=== PATIENT | male | born 1930 | race Caucasian/White ===

== ENCOUNTER 2016-07-15 10:47 | Emergency (ER) | payer BC ==
[~2016-07-15] VITALS: Ht 185.4 cm; Wt 98.0 kg
[~2016-07-15 10:47] MED LIST: AGG PO; CARB25TA12 PO; CHOL100010 PO; DORZ1SOL OPB; DOXA4TAB2 PO; MULT-506 PO; SIMV20TA2 PO
[2016-07-15 10:56] VITALS: TEMP 36.5; Ht 185.4 cm; Wt 98.0 kg
[2016-07-15 11:12] VITALS: O2SAT 98
[2016-07-15] MEDS ORDERED: DORZ2SOL17 OPB (11:26)
[2016-07-15] MEDS ORDERED: CHOL1000 PO (11:26)
[2016-07-15] MEDS ORDERED: AGG PO (11:26)
--- NOTE | 2016-07-15 12:15 | EMERGENCY ROOM VISIT NOTE ---
History Report prepared by Carinibe: Gilda Cárdenas Under the Supervision of: Dr. Dimitry Whitley M.D. First contact with patient: 11:58 Chief Complaint: SYNCOPE (NEAR SYNCOPE) Stated Complaint: SYNCOPE Nursing Triage Summary: PT was standing in yazidi,became light headed, and pale. PT laid down, did not ever pass out. PT upon arrival denies pain, denies CP, denies any SOB. PT AAO X 3, no dizziness. PT HX of bypass, has pacemaker. paced rhythm on monitor. VSS. History of Present Illness The patient is a 86 year old male who presents to the Emergency Room with complaints of an episode of near syncope that occurred this morning. He is accompanied by his and was brought to the ED via EMS. His reports he almost passed out in Jainism this morning. The patient states he was standing when he became dizzy and diaphoretic. He was able to lay down and wait for EMS to arrive. His denies any possible seizure activity but reports the patient looked "white as a sheet". The patient denies any chest pain or shortness of breath but admits to some increased low back pain over the past few weeks. He did eat a breakfast of toast this morning and reports he has experienced syncopal episodes in the past when he has not eaten. He has a history of cardiac bypass surgery and has a pacemaker. The patient denies any abdominal pain. His notes he takes daily generic Aggrenox and reports the patient had an ultrasound at Dr. Panda's office this past , 3 days ago. Source of History: patient, spouse/significant other () Onset: Earlier this morning Position: other (global) Timing: resolved Associated Symptoms: + back pain, No SOB, No abdominal pain, No chest pain Review of Systems All systems have been listed, reviewed, and are negative other than those previously mentioned. Please see Additional Medical History Sheet. Past Medical & Surgical Medical Problems: (1) Cardiac Dysrhythmias Nec (2) Cardiomegaly (3) Chr Ischemic Hrt Dis Nos (4) Chronic Kidney Disease, Unspecified (5) Hypertension Nos (6) Irritable Bowel Syndrome (7) Osteoarthros Nos-Unspec (8) Pacemaker (9) Syncope Family History Cancer FH: heart disease Social History Smoking Status: Former Smoker Drug Use: none Marital Status: Housing Status: lives with family Occupation Status: retired Current/Historical Medications Scheduled Carbidopa/Levodopa (Sinemet 25MG/100MG), 1 TAB PO TID Cholecalciferol (Vitamin D3), 1 TAB PO DAILY Dipyridamole/Aspirin (Aggrenox 25-200 mg), 1 CAP PO BID Dorzolamide Hcl (Trusopt Oph), 1 DROPS OP BID Doxazosin Mesylate (Cardura), 4 MG PO HS Multivitamin (Multivitamin), 1 TAB PO QAM Simvastatin (Zocor), 20 MG PO HS Allergies Coded Allergies: No Known Drug Allergy (Verified Allergy, Unknown, ., 05/04/15) High Fructose Clearwater Syrup (Verified Adverse Reaction, Intermediate, diarrhea, 03/31/16) Eggs or Egg-derived Products (Verified Adverse Reaction, Unknown, diarrhea , 03/31/16) Physical Exam Vital Signs Date Time Temp Pulse Resp B/P Pulse Ox O2 Delivery O2 Flow Rate FiO2 07/15/16 15:40 81 20 152/89 97 07/15/16 14:24 63 144/82 87 127/81 78 147/86 07/15/16 13:38 64 07/15/16 12:37 60 18 158/96 98 Room Air 07/15/16 11:12 98 Room Air 07/15/16 11:06 61 07/15/16 10:56 36.5 61 18 139/86 98 Room Air Physical Exam GENERAL: Patient awake, alert, oriented x 3. Patient follows commands. Patient does not appear toxic. Patient is adequately hydrated and well- nourished. SKIN: No erythema, pallor, cyanosis or rash HEENT: Normal head, pupils equal, reactive to light and accommodation. Increased cerumen bilaterally. Oral cavity and posterior pharynx appear normal. Neck: Without adenopathy, no neck vein distention. LUNGS: Clear to auscultation. No wheezes, no rales, no rhonchi. HEART: Irregularly irregular rhythm. No murmurs. No gallops. No rubs CHEST: Pacemaker in left upper chest. Midline sternotomy scar, well healed. ABDOMEN: Oblique RUQ scar. No masses, no rebound, no hepatomegaly or splenomegaly. EXTREMITIES: No signs of trauma. No pedal or pretibial edema. No calf or thigh tenderness. NEUROLOGIC: Cranial nerves II-XII within normal limits. No gross motor sensory function deficits. Medical Decision & Procedures ER Provider Diagnostic Interpretation: This X-Ray was reviewed and interpreted by myself and the radiologist. CHEST 2 VIEWS ROUTINE IMPRESSION: No acute cardiopulmonary findings. No change in appearance of the chest. Electronically signed by: Lupillo Hawley M.D. 07/15/2016 12:30 PM Laboratory Results 07/15/16 12:35 Red Blood Count 4.44, Mean Corpuscular Volume 95.0, Mean Corpuscular Hemoglobin 33.3, Mean Corpuscular Hemoglobin Concent 35.1, Mean Platelet Volume 9.4, Neutrophils (%) (Auto) 70.9, Lymphocytes (%) (Auto) 17.5, Monocytes (%) (Auto) 9.0, Eosinophils (%) (Auto) 2.2, Basophils (%) (Auto) 0.3, Neutrophils # (Auto) 4.90, Lymphocytes # (Auto) 1.21, Monocytes # (Auto) 0.62, Eosinophils # (Auto) 0.15, Basophils # (Auto) 0.02 07/15/16 12:35 Test 07/15/16 10:45 07/15/16 12:35 Prothrombin Time 10.9 SECONDS (9.0-12.0) Prothromb Time International Ratio 1.0 (0.9-1.1) White Blood Count 6.91 K/uL (4.8-10.8) Red Blood Count 4.44 M/uL (4.7-6.1) Hemoglobin 14.8 g/dL (14.0-18.0) Hematocrit 42.2 % (42-52) Mean Corpuscular Volume 95.0 fL (80-100) Mean Corpuscular Hemoglobin 33.3 pg (25-34) Mean Corpuscular Hemoglobin Concent 35.1 g/dl (32-36) Platelet Count 200 K/uL (130-400) Mean Platelet Volume 9.4 fL (7.4-10.4) Neutrophils (%) (Auto) 70.9 % Lymphocytes (%) (Auto) 17.5 % Monocytes (%) (Auto) 9.0 % Eosinophils (%) (Auto) 2.2 % Basophils (%) (Auto) 0.3 % Neutrophils # (Auto) 4.90 K/uL (1.4-6.5) Lymphocytes # (Auto) 1.21 K/uL (1.2-3.4) Monocytes # (Auto) 0.62 K/uL (0.11-0.59) Eosinophils # (Auto) 0.15 K/uL (0-0.5) Basophils # (Auto) 0.02 K/uL (0-0.2) RDW Standard Deviation 45.6 fL (36.4-46.3) RDW Coefficient of Variation 13.1 % (11.5-14.5) Immature Granulocyte % (Auto) 0.1 % Immature Granulocyte # (Auto) 0.01 K/uL (0.00-0.02) Urine Color YELLOW Urine Appearance CLEAR (CLEAR) Urine pH 7.5 (4.5-7.5) Urine Specific [place] 1.015 (1.000-1.030) Urine Protein NEG (NEG) Urine Glucose (UA) NEG (NEG) Urine Ketones NEG (NEG) Urine Occult Blood NEG (NEG) Urine Nitrite NEG (NEG) Urine Bilirubin NEG (NEG) Urine Urobilinogen NEG (NEG) Urine Leukocyte Esterase NEG (NEG) Anion Gap 8.0 mmol/L (3-11) Est Creatinine Clear Calc Drug Dose 46.7 ml/min Estimated GFR () 52.4 Estimated GFR (Non- 45.2 BUN/Creatinine Ratio 15.6 (10-20) Calcium Level 9.3 mg/dl (8.5-10.1) Total Bilirubin 0.7 mg/dl (0.2-1) Aspartate Amino Transf (AST/SGOT) 15 U/L (15-37) Alanine Aminotransferase (ALT/SGPT) 9 U/L (12-78) Alkaline Phosphatase 55 U/L (45-117) Troponin I < 0.015 ng/ml (0-0.045) Total Protein 7.7 gm/dl (6.4-8.2) Albumin 4.0 gm/dl (3.4-5.0) Globulin 3.7 gm/dl (2.5-4.0) Albumin/Globulin Ratio 1.1 (0.9-2) Laboratory results as stated above per my review. ECG Indication: syncope (near syncope) Rate (beats per minute): 64 Rhythm: other (AV dual paced rhythm) Findings: no acute ischemic change, no ectopy ED Course 1200: Past medical records reviewed. The patient was evaluated in room A3. A complete history and physical examination was performed. 1450: I reevaluated the patient. He is feeling well and his ambulation trial with nursing was successful. 1511: I discussed the patients case with Dr. Panda, [facility]. I will look up the patients recent Ultrasound at his office. Medical Decision The differential diagnoses considered include: TIA/CVA, vasovagal syncope, AAA, dissection/rupture, metabolic disorder and anemia. The patient is here after near syncopal episode in yazidi today. The patient was standing when this happened. He did not have complete loss of consciousness. He did not hit his head or other body parts. The patient now feels fine. The patient did have an ultrasound done within the past 2 weeks regarding his aortic aneurysm. Multiple labs, EKG and imaging were performed today. Please see above. The patient had orthostatics performed here which were felt to be within normal range. He had an ambulatory trial where he performed well. After some searching I was able to find patient's ultrasound results from . The study does not reveal any significant change. I do not believe the patient's lower back pain or near syncope today are related to his aortic aneurysm. I believe the patient is safe to return home. [place] Drug Monitoring Program Search Results: no issues identified Consults Time Called: 1509 Consulting Physician: Dr. Panda, [facility] Returned Call: 1511 I discussed the patients case with Dr. Panda, [facility]. I will look up the patients recent Ultrasound at his office. Impression Primary Impression: Near syncope Scribe Attestation The scribe's documentation has been prepared under my direction and personally reviewed by me in its entirety. I confirm that the note above accurately reflects all work, treatment, procedures, and medical decision making performed by me. Departure Information Dispostion Home / Self-Care Referrals Dionisio Horvath M.D. (PCP) Patient Instructions My [facility] Additional Instructions Continue all of your current medications. REST Follow-up the family physician within the next 7 days.
[2016-07-15 12:31] LABS: PROTHROMBIN TIME (PATIENT) 10.9 SECONDS (9.0-12.0)
--- NOTE | 2016-07-15 12:31 | DIAGNOSTIC IMAGING REPORT ---
CHEST 2 VIEWS ROUTINE CLINICAL HISTORY: Near syncope. COMPARISON STUDY: Chest radiograph March 31, 2016. FINDINGS: There is a dual lead left subclavian pacemaker, median sternotomy wires and clips from bypass grafting. Cardiomediastinal silhouette is stable. A hiatal hernia is again noted. There is no evidence of pulmonary edema. There is no consolidation to suggest pneumonia. Minimal left basilar opacity suggests atelectasis. IMPRESSION: No acute cardiopulmonary findings. No change in appearance of the chest. Electronically signed by: Lupillo Hawley M.D. 07/15/2016 12:30 PM Dictated Date/Time: 07/15/2016 12:29 PM
[2016-07-15 12:50] LABS: BASO % 0.3 %; BASO ABS # 0.02 K/uL (0-0.2); COMPLETE YES; EOS % 2.2 %; HEMATOCRIT 42.2 % (42-52); IG% 0.1 %; LYMPH % 17.5 %; LYMPH ABS # 1.21 K/uL (1.2-3.4); MANUAL MICROSCOPIC REQUIRED? NO; MEAN CORPUSCULAR HEMOGLOBIN 33.3 pg (25-34); MEAN CORPUSCULAR HGB CONC 35.1 g/dl (32-36); MEAN PLATELET VOLUME 9.4 fL (7.4-10.4); NEUT % 70.9 %; PLATELET COUNT 200 K/uL (130-400); RED BLOOD COUNT 4.44 M/uL (4.7-6.1); URINE APPEARANCE CLEAR (CLEAR); URINE BILIRUBIN NEG (NEG); URINE COLOR YELLOW; URINE NITRITE NEG (NEG); URINE PH 7.5 (4.5-7.5); URINE SPECIFIC GRAVITY 1.015 (1.000-1.030); UROBILINOGEN NEG (NEG); WHITE BLOOD COUNT 6.91 K/uL (4.8-10.8)
[2016-07-15 12:54] LABS: REVIEW REQ? NO
[2016-07-15 12:55] LABS: SULFASALICYLIC ACID NEG (NEG); ZZUR CULT IF INDIC CLEAN CATCH NO
[2016-07-15 13:08] LABS: ALT/SGPT 9 U/L (12-78); AST/SGOT 15 U/L (15-37); BLOOD UREA NITROGEN 22 mg/dl (7-18); BUN/CREATININE RATIO 15.6 (10-20); CALCIUM 9.3 mg/dl (8.5-10.1); CARBON DIOXIDE 29 mmol/L (21-32); CHLORIDE 106 mmol/L (98-107); GLUCOSE 93 mg/dl (70-99); POTASSIUM 4.4 mmol/L (3.5-5.1); SODIUM 143 mmol/L (136-145)
[2016-07-15 13:13] LABS: ALB/GLOB RATIO 1.1 (0.9-2); ALKALINE PHOSPHATASE 55 U/L (45-117)
[2016-07-15 15:40] VITALS: BP 152/89; PULSE 81; O2SAT 97
== END 2016-07-15 15:41 | disposition home or self-care (01) ==
LOC: EDBD 10:47 → C.EDA 10:48
DX: R55 Syncope and collapse (principal); I71.9 Aortic aneurysm of unspecified site, without rupture; I25.9 Chronic ischemic heart disease, unspecified; I51.7 Cardiomegaly; N18.9 Chronic kidney disease, unspecified; I12.9 Hypertensive chronic kidney disease with stage 1 through stage 4 chronic kidney disease, or unspecified chronic kidney disease; K58.9 Irritable bowel syndrome, unspecified; M19.90 Unspecified osteoarthritis, unspecified site; Z95.0 Presence of cardiac pacemaker; Z82.49 Family history of ischemic heart disease and other diseases of the circulatory system; Z87.891 Personal history of nicotine dependence; Z79.82 Long term (current) use of aspirin; Z79.899 Other long term (current) drug therapy

== ENCOUNTER → 2016-10-01 | Outpatient (CLI) | payer BC ==
[~2016-10-01] MED LIST changes: +CHOL1000 PO; -DORZ1SOL OPB; +DORZ2SOL17 OPB; +PRED20TA PO
[2016-10-01 13:37] LABS: BASO % 0.6 %; BASO ABS # 0.03 K/uL (0-0.2); COMPLETE YES; EOS % 6.1 %; HEMATOCRIT 40.5 % (42-52); IG% 0.4 %; LYMPH ABS # 1.72 K/uL (1.2-3.4); MEAN CELL VOLUME 98.3 fL (80-100); MEAN CORPUSCULAR HEMOGLOBIN 32.5 pg (25-34); MEAN CORPUSCULAR HGB CONC 33.1 g/dl (32-36); MEAN PLATELET VOLUME 9.6 fL (7.4-10.4); MONO % 13.6 %; NEUT % 47.3 %; PLATELET COUNT 203 K/uL (130-400); RED BLOOD COUNT 4.12 M/uL (4.7-6.1); WHITE BLOOD COUNT 5.38 K/uL (4.8-10.8)
[2016-10-01 13:44] LABS: URINE APPEARANCE CLEAR (CLEAR); URINE BILIRUBIN NEG (NEG); URINE COLOR DK YELLOW; URINE EPITHELIAL CELL AUTO 0-5 /lpf (0-5); URINE NITRITE NEG (NEG); URINE PH 5.5 (4.5-7.5); URINE SPECIFIC GRAVITY 1.017 (1.000-1.030); UROBILINOGEN NEG (NEG); ZZUR CULT IF INDIC CLEAN CATCH NO
[2016-10-01 13:45] LABS: ESTIMATED AVERAGE GLUCOSE 131 mg/dl; HA1C FLAG Normal (Normal)
[2016-10-01 13:51] LABS: MANUAL MICROSCOPIC REQUIRED? NO; REVIEW REQ? NO
[2016-10-01 13:57] LABS: BLOOD UREA NITROGEN 22 mg/dl (7-18); BUN/CREATININE RATIO 15.6 (10-20); CARBON DIOXIDE 29 mmol/L (21-32); CHLORIDE 107 mmol/L (98-107); GLUCOSE 92 mg/dl (70-99); POTASSIUM 4.4 mmol/L (3.5-5.1); SODIUM 142 mmol/L (136-145)
[2016-10-01 14:01] LABS: CALCIUM 9.5 mg/dl (8.5-10.1)
--- NOTE | 2016-10-08 13:56 | CODING QUERY MEDICAL NECESSITY ---
CQSUPPORTING DIAGNOSIS NEEDED A supporting diagnosis is required for the test/procedure performed on this patient in order for us to be reimbursed by the patient's insurance. Please provide a supporting diagnosis for the following test/procedure listed below next to the test name along with your signature. *If there is no additional diagnosis for this patient that would support the following test/procedure please document that below next to the test/procedure. Test(s)/Procedure(s) that require a supporting diagnosis: DOS 10/01/16 VITAMIN B12 VITAMIN D TESTS Provider Signature: Date: Thank you France Chauhan Health Information Management Once completed, please kindly fax back to [phone] For questions please call [phone]
== END | disposition home or self-care (01) ==
LOC: C.LABBC 11:40
PROVIDERS: ATTEND Internal Medicine Geriatric Medicine
DX: R39.15 Urgency of urination (principal); N18.9 Chronic kidney disease, unspecified; I25.10 Atherosclerotic heart disease of native coronary artery without angina pectoris; E11.9 Type 2 diabetes mellitus without complications; D64.9 Anemia, unspecified; E55.9 Vitamin D deficiency, unspecified

== ENCOUNTER 2016-12-02 11:18 | Emergency (ER) | payer BC ==
[~2016-12-02] VITALS: Ht 186.7 cm; Wt 92.0 kg
[~2016-12-02 11:18] MED LIST changes: -CHOL100010 PO; -PRED20TA PO
[2016-12-02 11:23] VITALS: Ht 186.7 cm; Wt 92.0 kg
[2016-12-02 12:01] LABS: BASO % 0.4 %; BASO ABS # 0.02 K/uL (0-0.2); COMPLETE YES; EOS % 3.7 %; HEMATOCRIT 39.9 % (42-52); IG% 0.2 %; LYMPH % 20.9 %; LYMPH ABS # 1.07 K/uL (1.2-3.4); MEAN CELL VOLUME 95.9 fL (80-100); MEAN CORPUSCULAR HEMOGLOBIN 31.3 pg (25-34); MEAN CORPUSCULAR HGB CONC 32.6 g/dl (32-36); MEAN PLATELET VOLUME 9.1 fL (7.4-10.4); MONO % 12.3 %; NEUT % 62.5 %; PLATELET COUNT 197 K/uL (130-400); RED BLOOD COUNT 4.16 M/uL (4.7-6.1); WHITE BLOOD COUNT 5.13 K/uL (4.8-10.8)
--- NOTE | 2016-12-02 12:12 | DIAGNOSTIC IMAGING REPORT ---
SINGLE VIEW CHEST CLINICAL HISTORY: Syncope. FINDINGS: 2 AP, portable, upright chest radiographs are compared to study dated 07/15/2016 and correlated with chest CT dated 09/14/2008. The examination is degraded by portable technique and patient rotation. A 2-lead cardiac pacemaker is unchanged in position and partially obscures the left upper chest. The patient is status post midline sternotomy. The heart is enlarged and there is atherosclerotic calcification of the thoracic aorta. The pulmonary vasculature is noncongested. Apical scarring is observed. Emphysema and chronic interstitial thickening are similar to previous. No airspace consolidation, large pleural effusion, or pneumothorax is seen. The skeletal structures are osteopenic. The bony thorax is grossly intact. Cholecystectomy clips are seen in the right upper quadrant. IMPRESSION: 1. Cardiomegaly and cardiac pacemaker. There is no radiographic evidence of congestive failure. 2. Emphysematous change. There is no airspace consolidation or pleural effusion. Electronically signed by: John Nichols M.D. 12/02/2016 12:11 PM Dictated Date/Time: 12/02/2016 12:07 PM
[2016-12-02 12:20] LABS: BUN/CREATININE RATIO 14.3 (10-20); CALCIUM 9.4 mg/dl (8.5-10.1); CREATININE 1.5 mg/dl (0.60-1.40); POTASSIUM 4.1 mmol/L (3.5-5.1)
[2016-12-02 12:29] LABS: CKMB/CK RATIO 1.5 (0-3.0); THYROID STIMULATING HORMONE 2.13 uIu/ml (0.300-4.500)
[2016-12-02] MEDS ORDERED: OPTIRAY 320 IV PRN (12:45)
--- NOTE | 2016-12-02 13:01 | DIAGNOSTIC IMAGING REPORT ---
CT SCAN OF THE BRAIN COMBO CLINICAL HISTORY: Syncope. COMPARISON STUDY: CT of the brain dated 04/23/2012. MRI of the brain dated 06/09/2014. TECHNIQUE: Axial CT scan of the brain is performed from the vertex to the skull base before and following the IV administration of 93 cc of Optiray 320. CT DOSE: 1768.17 mGy.cm FINDINGS: Brain parenchyma: There are age-related involutional changes noting moderate confluent subcortical and periventricular microangiopathic change. There is no hemorrhage, mass effect, or evidence of acute territorial ischemia by CT criteria. There is no evidence of enhancing mass lesion on the postcontrast images. 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 Siddiqi-white matter is preserved. No extra-axial fluid collection is seen. Ventricles, sulci, cisterns: Prominent secondary to involutional change. Intracranial vasculature: There is atherosclerotic calcification of the cavernous carotid and vertebral arteries. Calvarium: The skeletal structures are osteopenic. There is no depressed calvarial fracture. Sinuses and mastoids: Trace mucosal thickening is seen in the maxillary antra and the ethmoid sinuses. The remaining paranasal sinuses are clear. There is a trace left mastoid effusion. The right mastoid air cells are well pneumatized. Orbits: The bony orbits are grossly intact. IMPRESSION: Senescent changes as above with no hemorrhage, enhancing mass, or evidence of acute territorial ischemia by CT criteria. Electronically signed by: John Nichols M.D. 12/02/2016 1:00 PM Dictated Date/Time: 12/02/2016 12:55 PM
[2016-12-02 13:34] LABS: URINE APPEARANCE CLEAR (CLEAR); URINE BILIRUBIN NEG (NEG); URINE COLOR YELLOW; URINE EPITHELIAL CELL AUTO 0-5 /lpf (0-5); URINE NITRITE NEG (NEG); URINE PH 7.5 (4.5-7.5); URINE SPECIFIC GRAVITY 1.024 (1.000-1.030); UROBILINOGEN NEG (NEG); ZZUR CULT IF INDIC CLEAN CATCH NO
[2016-12-02 13:35] LABS: MANUAL MICROSCOPIC REQUIRED? NO; REVIEW REQ? NO
--- NOTE | 2016-12-02 15:08 | EMERGENCY ROOM VISIT NOTE ---
History Report prepared by Henrietta: Jose D Morin Under the Supervision of: Dr. Shruti Castaneda D.O. First contact with patient: 11:52 Chief Complaint: SYNCOPE (NEAR SYNCOPE) Stated Complaint: SYNCOPE Nursing Triage Summary: pt arrived als from [facility] reported syncopal event, [facility] was warm and pt was dressed in heavy jacket. this is the second time in two months this has happened pt hx pacer placed two years prior, double bipass in 85 History of Present Illness The patient is a 86 year old male who presents to the Emergency Room by EMS with complaints of a syncopal episode occurring just prior to arrival. He was at [facility] today when he passed out. He notes that he was wearing a heavy jacket , and the [facility] was very warm. The patient had a previous near-syncopal event occur about a month ago which was thought to be related to dehydration. Per , the patient appears to have completely lost consciousness today. She states that the patient was unconscious while sitting for several minutes, but woke up very quickly upon being laid on the ground. The patient recalls feeling "woozy" and sweaty prior to passing out. He does not remember passing out. The patient' s notes that the patient is seen by a neurologist for Parkinsonism. The patient had his medication dosage changed by his neurologist earlier this week. He notes that he felt a little increased stress earlier this week. He denies any diarrhea, abdominal pain, chest pain, SOB, numbness, tingling, nausea, vomiting, visual changes or palpitations. The patient also complains of increased urinary frequency. He has a pacemaker in place which was most recently examined during his previous near-syncopal episode about a month ago. Source of History: patient Onset: Just prior to arrival Quality: other (syncope) Timing: other (episode) Associated Symptoms: + LOC, + urinary symptoms (increased frequency), No chest pain, No SOB, No nausea, No vomiting, No abdominal pain, No diarrhea, No numbness Note: The patient denies any visual changes, tingling, or palpitations. He also complains of feeling "woozy" prior to falling. Review of Systems See HPI for pertinent positives & negatives. A total of 10 systems reviewed and were otherwise negative. Past Medical & Surgical Medical Problems: (1) Cardiac Dysrhythmias Nec (2) Cardiomegaly (3) Chr Ischemic Hrt Dis Nos (4) Chronic Kidney Disease, Unspecified (5) Hypertension Nos (6) Irritable Bowel Syndrome (7) Osteoarthros Nos-Unspec (8) Pacemaker (9) Parkinsonism (10) Syncope Family History Cancer FH: heart disease Social History Smoking Status: Former Smoker Drug Use: none Marital Status: Housing Status: lives with family Occupation Status: retired Current/Historical Medications Scheduled Carbidopa/Levodopa (Sinemet 25MG/100MG), 3 TAB PO TID Cholecalciferol (Vitamin D3), 1 TAB PO DAILY Dipyridamole/Aspirin (Aggrenox 25-200 mg), 1 CAP PO BID Dorzolamide Hcl (Trusopt Oph), 1 DROPS OPB BID Doxazosin Mesylate (Cardura), 2 MG PO HS Multivitamin (Multivitamin), 1 TAB PO QAM Simvastatin (Zocor), 20 MG PO HS Allergies Coded Allergies: No Known Drug Allergy (Verified Allergy, Unknown, ., 05/04/15) High Fructose [place] Syrup (Verified Adverse Reaction, Intermediate, diarrhea, 03/31/16) Eggs or Egg-derived Products (Verified Adverse Reaction, Unknown, diarrhea , 03/31/16) Physical Exam Vital Signs Date Time Temp Pulse Resp B/P (MAP) Pulse Ox O2 Delivery O2 Flow Rate FiO2 12/02/16 15:17 36.5 61 18 146/83 99 12/02/16 14:28 63 16 174/107 98 Room Air 12/02/16 14:19 97 Room Air 12/02/16 13:01 64 16 162/92 96 Room Air 72 151/93 74 156/83 12/02/16 12:04 60 12/02/16 11:23 36.5 70 18 153/85 93 Room Air Physical Exam GENERAL: alert, well appearing, well nourished, no distress, non-toxic EYE EXAM: normal conjunctiva. OROPHARYNX: no exudate, no erythema, lips, buccal mucosa, and tongue normal and mucous membranes are moist NECK: supple, no nuchal rigidity, no adenopathy, non-tender LUNGS: Clear to auscultation. Normal chest wall mechanics HEART: no murmurs, S1 normal and S2 normal CHEST: Well healed sternotomy scar. Pacemaker left anterior superior chest wall. ABDOMEN: abdomen soft, non-tender, normo-active bowel sounds, no masses, no rebound or guarding. BACK: Back is symmetrical on inspection and there is no deformity, no midline tenderness, no CVA tenderness. SKIN: no rashes and no bruising UPPER EXTREMITIES: upper extremities are grossly normal. LOWER EXTREMITIES: No pitting edema. NEURO EXAM: Normal sensorium, cranial nerves II-XII grossly intact, normal speech, no gross weakness of arms, no gross weakness of legs. Medical Decision & Procedures ER Provider Diagnostic Interpretation: Radiology results have been interpreted by the radiologist and reviewed by me. CT SCAN OF THE BRAIN COMBO FINDINGS: Brain parenchyma: There are age-related involutional changes noting moderate confluent subcortical and periventricular microangiopathic change. There is no hemorrhage, mass effect, or evidence of acute territorial ischemia by CT criteria. There is no evidence of enhancing mass lesion on the postcontrast images. 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 Siddiqi-white matter is preserved. No extra-axial fluid collection is seen. Ventricles, sulci, cisterns: Prominent secondary to involutional change. Intracranial vasculature: There is atherosclerotic calcification of the cavernous carotid and vertebral arteries. Calvarium: The skeletal structures are osteopenic. There is no depressed calvarial fracture. Sinuses and mastoids: Trace mucosal thickening is seen in the maxillary antra and the ethmoid sinuses. The remaining paranasal sinuses are clear. There is a trace left mastoid effusion. The right mastoid air cells are well pneumatized. Orbits: The bony orbits are grossly intact. IMPRESSION: Senescent changes as above with no hemorrhage, enhancing mass, or evidence of acute territorial ischemia by CT criteria. Electronically signed by: John Nichols M.D. SINGLE VIEW CHEST FINDINGS: 2 AP, portable, upright chest radiographs are compared to study dated 07/15/2016 and correlated with chest CT dated 09/14/2008. The examination is degraded by portable technique and patient rotation. A 2-lead cardiac pacemaker is unchanged in position and partially obscures the left upper chest. The patient is status post midline sternotomy. The heart is enlarged and there is atherosclerotic calcification of the thoracic aorta. The pulmonary vasculature is noncongested. Apical scarring is observed. Emphysema and chronic interstitial thickening are similar to previous. No airspace consolidation, large pleural effusion, or pneumothorax is seen. The skeletal structures are osteopenic. The bony thorax is grossly intact. Cholecystectomy clips are seen in the right upper quadrant. IMPRESSION: 1. Cardiomegaly and cardiac pacemaker. There is no radiographic evidence of congestive failure. 2. Emphysematous change. There is no airspace consolidation or pleural effusion. Electronically signed by: John Nichols M.D. Laboratory Results 12/02/16 11:40 Red Blood Count 4.16, Mean Corpuscular Volume 95.9, Mean Corpuscular Hemoglobin 31.3, Mean Corpuscular Hemoglobin Concent 32.6, Mean Platelet Volume 9.1, Neutrophils (%) (Auto) 62.5, Lymphocytes (%) (Auto) 20.9, Monocytes (%) (Auto) 12.3, Eosinophils (%) (Auto) 3.7, Basophils (%) (Auto) 0.4, Neutrophils # (Auto ) 3.21, Lymphocytes # (Auto) 1.07, Monocytes # (Auto) 0.63, Eosinophils # (Auto ) 0.19, Basophils # (Auto) 0.02 12/02/16 11:40 Test 12/02/16 11:40 12/02/16 11:50 12/02/16 13:10 12/02/16 14:25 White Blood Count 5.13 K/uL (4.8-10.8) Red Blood Count 4.16 M/uL (4.7-6.1) Hemoglobin 13.0 g/dL (14.0-18.0) Hematocrit 39.9 % (42-52) Mean Corpuscular Volume 95.9 fL (80-100) Mean Corpuscular Hemoglobin 31.3 pg (25-34) Mean Corpuscular Hemoglobin Concent 32.6 g/dl (32-36) Platelet Count 197 K/uL (130-400) Mean Platelet Volume 9.1 fL (7.4-10.4) Neutrophils (%) (Auto) 62.5 % Lymphocytes (%) (Auto) 20.9 % Monocytes (%) (Auto) 12.3 % Eosinophils (%) (Auto) 3.7 % Basophils (%) (Auto) 0.4 % Neutrophils # (Auto) 3.21 K/uL (1.4-6.5) Lymphocytes # (Auto) 1.07 K/uL (1.2-3.4) Monocytes # (Auto) 0.63 K/uL (0.11-0.59) Eosinophils # (Auto) 0.19 K/uL (0-0.5) Basophils # (Auto) 0.02 K/uL (0-0.2) RDW Standard Deviation 43.4 fL (36.4-46.3) RDW Coefficient of Variation 12.5 % (11.5-14.5) Immature Granulocyte % (Auto) 0.2 % Immature Granulocyte # (Auto) 0.01 K/uL (0.00-0.02) Anion Gap 7.0 mmol/L (3-11) Est Creatinine Clear Calc Drug Dose 40.5 ml/min Estimated GFR () 48.2 Estimated GFR (Non- 41.6 BUN/Creatinine Ratio 14.3 (10-20) Calcium Level 9.4 mg/dl (8.5-10.1) Total Bilirubin 0.6 mg/dl (0.2-1) Aspartate Amino Transf (AST/SGOT) 16 U/L (15-37) Alanine Aminotransferase (ALT/SGPT) 8 U/L (12-78) Alkaline Phosphatase 51 U/L (45-117) Total Creatine Kinase 139 U/L (39-308) Creatine Kinase MB 2.1 ng/ml (0.5-3.6) Creatine Kinase MB Ratio 1.5 (0-3.0) Total Protein 6.9 gm/dl (6.4-8.2) Albumin 3.5 gm/dl (3.4-5.0) Globulin 3.4 gm/dl (2.5-4.0) Albumin/Globulin Ratio 1.0 (0.9-2) Thyroid Stimulating Hormone (TSH) 2.130 uIu/ml (0.300-4.500) Bedside Troponin I 0.030 ng/ml (0-0.045) Urine Color YELLOW Urine Appearance CLEAR (CLEAR) Urine pH 7.5 (4.5-7.5) Urine Specific [place] 1.024 (1.000-1.030) Urine Protein NEG (NEG) Urine Glucose (UA) NEG (NEG) Urine Ketones NEG (NEG) Urine Occult Blood NEG (NEG) Urine Nitrite NEG (NEG) Urine Bilirubin NEG (NEG) Urine Urobilinogen NEG (NEG) Urine Leukocyte Esterase NEG (NEG) Urine WBC (Auto) 0 /hpf (0-5) Urine RBC (Auto) 0-4 /hpf (0-4) Urine Hyaline Casts (Auto) 1-5 /lpf (0-5) Urine Epithelial Cells (Auto) 0-5 /lpf (0-5) Urine Bacteria (Auto) NEG (NEG) Troponin I 0.040 ng/ml (0-0.045) Laboratory results per my review. ECG Indication: syncope Rate (beats per minute): 61 Rhythm: other (Paced Rhythm) Findings: no acute ischemic change, other (LAD. Prolonged intervals consistent with pacing. ) ED Course 1208: The patient was evaluated in room A9B. A complete history and physical exam was performed. 1420: I reassessed the patient. He feels better. He was able to walk around without difficulty. 1500: Upon reevaluation, the patient is feeling better. I discussed the findings and the treatment plan with the patient. He verbalizes agreement and understanding. The patient was discharged home. Medical Decision Differential diagnosis: Etiologies such as vasovagal event, infection, hypoglycemia, electrolyte abnormalities, cardiac sources, intracerebral event, toxicologic, neurologic, as well as others were entertained. Blood pressure screening: Patient was found to have an elevated blood pressure and was referred to their primary doctor for recheck and further treatment. Medication Reconciliation: I attest that I have personally reviewed the patient' s current medication list. Patient well-appearing here and have return to baseline by the time of my evaluation. Patient with prodromal symptoms leading up to event similar to prior episode. No dysrhythmias a pacemaker. Be working normally monitored on telemetry. Patient monitored her for several hours as a precaution. Labs and imaging all appear reassuring and chronic renal insufficiency appears at baseline. Repeat troponin negative also, and patient with no symptoms for chest pain or shortness of breath. Patient and offered admission for continued evaluation and treatment, discussed risks versus benefits of admission versus discharge, they politely declined and would like to go home and follow up closely with the patient's family doctor. Discussed all of his medications, adequate hydration, and avoidance of any strenuous activity until he is seen and evaluated by family doctor again. Discussed symptoms to be concerned about and return to the emergency room for, he had verbalized understanding were agreeable with plan. Patient with a normal nonfocal neuro exam here, mild parkinsonian symptoms noted including a shuffling gait, however doubt CVA. Doubt ACS, dissection, PE , tamponade, effusion, doubt bacteremia/sepsis, doubt other GI pathology, no evidence of urinary tract infection. Impression Primary Impression: Syncope Additional Impression: ESSENTIAL (PRIMARY) HYPERTENSION Scribe Attestation The scribe's documentation has been prepared under my direction and personally reviewed by me in its entirety. I confirm that the note above accurately reflects all work, treatment, procedures, and medical decision making performed by me. Departure Information Dispostion Home / Self-Care Referrals Dionisio Horvath M.D. (PCP) Patient Instructions My [facility] Additional Instructions Please follow up with your family doctor this week. Please continue regular medications as prescribed. Please try to eat and drink regularly, and drink plenty of fluids to stay well-hydrated. If you have any recurrent episodes, began to feel dizzy or lightheaded, develop chest pain or palpitations, trouble breathing, headaches, numbness or tingling, you've any other new or concerning symptoms, please return the emergency room. Problem Qualifiers Primary Impression: Syncope Syncope type: unspecified Qualified Codes: R55 - Syncope and collapse
[2016-12-02 15:17] VITALS: BP 146/83; PULSE 61; TEMP 36.5; O2SAT 99
== END 2016-12-02 16:18 | disposition home or self-care (01) ==
LOC: EDBD 11:18 → C.EDA 11:19
DX: R55 Syncope and collapse (principal); I12.9 Hypertensive chronic kidney disease with stage 1 through stage 4 chronic kidney disease, or unspecified chronic kidney disease; N18.9 Chronic kidney disease, unspecified; I25.9 Chronic ischemic heart disease, unspecified; K58.9 Irritable bowel syndrome, unspecified; G20 Parkinson's disease; M19.90 Unspecified osteoarthritis, unspecified site; Z95.0 Presence of cardiac pacemaker; Z87.891 Personal history of nicotine dependence; Z79.899 Other long term (current) drug therapy; Z91.012 Allergy to eggs; Z91.018 Allergy to other foods; Z80.9 Family history of malignant neoplasm, unspecified; Z82.49 Family history of ischemic heart disease and other diseases of the circulatory system

== ENCOUNTER → 2017-02-14 | Outpatient (CLI) | payer BC ==
--- NOTE | 2017-02-14 15:50 | DIAGNOSTIC IMAGING REPORT ---
LEFT PELVIS/UNILATERAL HIP 2-3VIEWS CLINICAL HISTORY: W19.XXXA [id number] Left leg [id number] pain. Trauma. COMPARISON: None. DISCUSSION: Moderate generalized degenerative change. No evidence for acetabular protrusion. No evidence for fracture. There is no evidence for soft tissue swelling. IMPRESSION: Degenerative change. No acute bony abnormality. The above report was generated using voice recognition software. It may contain grammatical, syntax or spelling errors. Electronically signed by: Eugenio Elizondo M.D. 02/14/2017 3:49 PM Dictated Date/Time: 02/14/2017 3:48 PM
--- NOTE | 2017-02-14 15:51 | DIAGNOSTIC IMAGING REPORT ---
LEFT FEMUR 2 VIEWS ROUTINE CLINICAL HISTORY: W19.XXXA [id number] trauma. Pain. COMPARISON: None. DISCUSSION: The bones and joint spaces appear intact. There is no evidence of fracture, dislocation or bony disease. There is no evidence for soft tissue swelling. IMPRESSION: Negative study. The above report was generated using voice recognition software. It may contain grammatical, syntax or spelling errors. Electronically signed by: Eugenio Elizondo M.D. 02/14/2017 3:50 PM Dictated Date/Time: 02/14/2017 3:49 PM
== END | disposition home or self-care (01) ==
LOC: C.RAD1850 15:26
PROVIDERS: ATTEND Nurse Practitioner Adult Health
DX: M79.605 Pain in left leg (principal); W19.XXXA Unspecified fall, initial encounter; M89.8X8 Other specified disorders of bone, other site

== ENCOUNTER → 2017-03-09 | Outpatient (CLI) | payer BC ==
--- NOTE | 2017-03-09 10:11 | DIAGNOSTIC IMAGING REPORT ---
CHEST 2 VIEWS ROUTINE HISTORY: 86 years-old Male R05 Persistent [id number] acute cough x3 weeks. COMPARISON: Chest radiograph 12/02/2016 TECHNIQUE: Frontal and lateral views of the chest FINDINGS: Prior median sternotomy. Cardiac silhouette is within normal limits. There is atherosclerosis of the aorta. Left subclavian pacer is noted with leads intact. Multiple surgical clips project over the mediastinum. Mild biapical pleural-parenchymal scarring with background emphysema. Linear opacities of the medial right lung base are also unchanged suggesting chronic interstitial changes. No pneumothorax, pleural effusion or lobar airspace consolidation. Lungs are hyperinflated. The bones appear grossly intact with multilevel endplate wedging of the spine. Graft of the aorta is seen. Surgical clips of the upper abdomen suggest prior cholecystectomy. IMPRESSION: Emphysema without acute cardiopulmonary process. The above report was generated using voice recognition software. It may contain grammatical, syntax or spelling errors. Electronically signed by: Tadeo Butler M.D. 03/09/2017 10:09 AM Dictated Date/Time: 03/09/2017 10:07 AM
== END | disposition home or self-care (01) ==
LOC: C.RADBC 09:48
PROVIDERS: ATTEND Family Medicine Adult Medicine
DX: R05 Cough (principal)

== ENCOUNTER → 2017-05-14 | Outpatient (CLI) | payer BC ==
[~2017-05-14] MED LIST changes: -CHOL1000 PO; +CHOL100010 PO; -DOXA4TAB2 PO; +PRED20TA PO
[2017-05-14 17:20] LABS: BLOOD UREA NITROGEN 20 mg/dl (7-18); CREATININE 1.64 mg/dl (0.60-1.40)
== END | disposition home or self-care (01) ==
LOC: C.LAB 16:18
PROVIDERS: ATTEND Psychiatry & Neurology Neurology
DX: Z00.00 Encounter for general adult medical examination without abnormal findings (principal); N18.9 Chronic kidney disease, unspecified; E11.9 Type 2 diabetes mellitus without complications

== ENCOUNTER → 2017-05-15 | Outpatient (CLI) | payer BC ==
[~2017-05-15] MED LIST changes: +GADAVIST IV PRN
--- NOTE | 2017-05-15 15:08 | DIAGNOSTIC IMAGING REPORT ---
Brain MRI WITH AND WITHOUT CONTRAST HISTORY: R26.9 Abnormal gait I63.9 Stroke syndrome evaluate for NPH, stroke TECHNIQUE: Multiplanar multisequence MRI of the brain was performed both before and after the intravenous administration of contrast. COMPARISON STUDY: Head CT 12/02/2016. Brain MRI 06/09/2014. FINDINGS: No areas of restricted diffusion to suggest acute infarction. Stable T2 hyperintense nodular foci seen within the posterior nasal pharynx with the largest on the right measuring 1.3 cm. These likely represent polyps. The mastoid air cells are clear. The major vascular flow-voids at the skull base are maintained. Old small lacunar infarcts seen within the right cerebellar hemisphere. Moderate atrophy and presumed microvascular ischemic changes are again noted. This is not significantly changed. Mild ventricular prominence is likely due to the atrophy. No abnormal enhancement. IMPRESSION: No significant change compared to the prior study. No acute intracranial abnormality. Nasal polyps are again noted. Electronically signed by: Antolin Ribera M.D. 05/15/2017 3:07 PM Dictated Date/Time: 05/15/2017 2:59 PM
== END | disposition home or self-care (01) ==
LOC: C.MRI 12:48
PROVIDERS: ATTEND Psychiatry & Neurology Neurology
DX: I63.9 Cerebral infarction, unspecified (principal); R26.9 Unspecified abnormalities of gait and mobility

== ENCOUNTER → 2017-06-10 | Outpatient (CLI) | payer BC ==
[~2017-06-10] MED LIST changes: -GADAVIST IV PRN
== END | disposition home or self-care (01) ==
LOC: C.LABBC 11:42
PROVIDERS: ATTEND Internal Medicine Geriatric Medicine
DX: G20 Parkinson's disease (principal)

== ENCOUNTER → 2017-06-12 | Day surgery (SDC) | payer BC ==
[2017-05-06 15:16] VITALS: Ht 188 cm; Wt 86.4 kg
[~2017-06-12] VITALS: Ht 188 cm; Wt 86.4 kg
[~2017-06-12] MED LIST changes: +500ML BSS 0.3ML EPI 1:1000PF IRRIG ONE; +ACETAMINOPHEN 325 MG TAB PO PRN; +AMVISC PLUS 0.8ML SYRINGE INT OCU ONE; +ATROPINE SULFATE 0.1 MG/ML 5ML SYR IV PRN; +AcetaZOLAMIDE 250 MG TAB PO SCH; +BETAXOLOL HCL 0.25% OP SUSP PER DROP CHARGE OPL SCH; +BRIMONIDINE TART 0.2% OP SOLN PER DROP CHARGE ONE; +BRIMONIDINE TARTRATE 0.2% 5ML ONE; +BSS FLUSH ONE; +ENDOCOAT 0.85ML SYRINGE INT OCU ONE; +EpHEDrine SULFATE INJ 50 MG/ML AMP IV PRN; +EpINEphrine INJ 1MG/ML AMP 1 MG/ML AMP ONE; +FENTANYL CITRATE INJ 50 MCG/1 ML 2 ML VIAL ONE; +LACTATED RINGER'S 1000ML 500 ML IV SCH; +LIDOCAINE 4% OP SOLN DROP CHARGE ONE; +LIDOCAINE 4% OP SOLN DROP CHARGE OPL SCH; +LIDOCAINE HCL 1% MPF 2 ML VIAL ONE; +MIX: 4ML BSS 1ML EPI 1:1000 PF INSTIL ONE; +MOXIFLOXACIN OPH SOLN PER DROP CHARGE ONE; +OCUCOAT 1 ML SOLN IO ONE; +POVIDONE-IODINE OP SOLN 30 ML BTL ONE; +PROPARACAINE 0.5% OP SOLN PER DROP CHARGE OPL SCH; +PROPOFOL IV EMULSION 10 MG/ML 20 ML VIAL IV ONE; +TOBRAMYCIN/DEXAMETHASONE OPH OINT PER APPLN CHARGE ONE
[2017-06-12] MEDS: PHENYLEPHRINE HCL 2.5% OP SOLN PER DROP CHARGE OPL SCH ×2 (06:37→06:42)
[2017-06-12] MEDS: TROPICAMIDE 1% OP SOLN PER DROP CHARGE OPL SCH ×2 (06:38→06:43)
[2017-06-12] MEDS: CYCLOPENTOLATE HCL 1% OP SOLN PER DROP CHARGE OPL SCH ×2 (06:39→06:44)
[2017-06-12] MEDS: MOXIFLOXACIN OPH SOLN PER DROP CHARGE OPL SCH ×2 (06:40→06:50)
--- NOTE | 2017-06-12 06:58 | History & Physical Bridge - SC ---
H&P Re-Evaluation Bridge Note: I have examined the patient, reviewed the History & Physical and in the interval since the performance of the History & Physical I have noted the following changes of clinical significance: No changes noted
--- NOTE | 2017-06-12 07:12 | [facility] Operative Report ---
Operative Report Date of Service Jun 12, 2017. Operative Report 1. PREOPERATIVE DIAGNOSIS: Senile nuclear cataract, left eye. 2. POSTOPERATIVE DIAGNOSIS: Senile nuclear cataract, left eye. 3. PROCEDURE: Phacoemulsification of left cataract with posterior chamber lens implant, type [employer], model MX60, power +20.5 diopters. ANESTHESIA: Local standby. SURGEON: Dr. Randall. COMPLICATIONS: None. OPERATING TIME: 10 minutes. 4. OPERATION AND FINDINGS: DESCRIPTION OF PROCEDURE: The left pupil was dilated. The anesthetic was administered using a topical technique. The left eye was prepped and draped. A speculum was placed. A clear corneal incision was formed. The chamber was filled with Amvisc Plus and Endocoat. Epinephrine solution was used. A paracentesis was placed. A capsulorrhexis was performed. The nucleus was hydrodissected. The lens was removed with phacoemulsification. Time was 4.35 seconds. The aspiration unit was used to remove the cortex. The capsule was filled with Amvisc Plus. The lens implant was folded and placed into the capsule. The incision was hydrated. The Amvisc was aspirated. The wound was secure. The chamber was deep. The pupil was round. Brimonidine, TobraDex ointment and Vigamox solution were placed. The speculum was removed. The patient was returned to the Recovery Room in stable condition. I attest to the content of the Intraoperative Record and any orders documented therein. Any exceptions are noted below. The scribe's documentation has been prepared in my presence, under my direction and personally reviewed by me in its entirety. I confirm that the note above accurately reflects all work, treatment, procedures, and medical decision making performed by me. I personally scribed for Shai Randall M.D. ([email or web address]) on 06/12/17 at 07:12. Electronically submitted by Ariana Seaman ([email or web address]).
--- NOTE | 2017-06-12 07:16 | Discharge Instructions-SurgCtr ---
Discharge Instructions Date of Service Jun 12, 2017. Visit Reason for Visit: Left Cataract Discharge Discharge Diagnosis / Problem: lens implant left eye Discharge Goals Goal(s): Improve function Activity Recommendations Activity Limitations: resume your previous activity Lifting Limitations: no more than 10 pounds Exercise/Sports Limitations: gradually increase as tolerated May Resume Sexual Activity: when tolerated Shower/Bathe: tomorrow Driving or Machine Use: resume 1 day after discharge Anesthesia . Post Anesthesia Instructions: If you have had General Anesthesia or IV Sedation: * Do not drive today. * Resume driving when surgeon permits. * Do not make important decisions or sign legal documents today. * Call surgeon for: 1. Temperature elevations greater than 101 degrees F. 2. Uncontrollable pain. 3. Excessive bleeding. 4. Persistent nausea and vomiting. 5. Medication intolerance (nausea, vomiting or rash). * For nausea and vomiting use only clear liquids such as: tea, soda, bouillon until nausea subsides, then gradually increase diet as tolerated. * If you have any concerns or questions, call your surgeon's office. If physician is unavailable and it is an emergency, call 911 or go to the nearest emergency room. . Instructions / Follow-Up Instructions / Follow-Up ACTIVITY RECOMMENDATIONS: * Light activities. * Mild irritation and blurred vision are common for the first few days. * You may walk outside, read, watch television. * Redness around the white part of the eye is common. MEDICATIONS: Resume previous medications unless instructed otherwise by your surgeon. * Take white Diamox (Acetazolamide) tablet at 1 pm today. Start all eye drops at 1 pm today: * Eye drops (today and tomorrow): Prednisone - one drop in operative eye every 3 hours while awake Ofloxacin - one drop in operative eye every 3 hours while awake Continue Glaucoma Drops as directed in Right Eye SPECIAL CARE INSTRUCTIONS: * Tape plastic shield over eye to sleep at night. Call your doctor at with any concerns or problems. FOLLOW UP VISIT: Follow-up with Dr Randall at [place] office as scheduled. Diet Recommendations Home Diet: no limitations Procedures Procedures Performed: Left Cataract Phacoemulsification With Intraocular Lens Implant Pending Studies Studies pending at discharge: no Medical Emergencies . Who to Call and When: Medical Emergencies: If at any time you feel your situation is an emergency, please call 911 immediately. . Non-Emergent Contact Non-Emergency issues call your: [employer] Call Non-Emergent contact if: your pain is not controlled [phone] . . "Provider Documentation" section prepared by Shai Randall. .
--- NOTE | 2017-06-12 07:42 | Anesthesia Progress Nt - [facility] ---
Anesthesia Post Op Note Date & Time Jun 12, 2017 at 07:42 Vital Signs Pain Intensity: 0 Vital Signs Past 12 Hours Date Time Temp Pulse Resp B/P (MAP) Pulse Ox O2 Delivery O2 Flow Rate FiO2 06/12/17 07:16 36.4 65 12 175/88 (117) 97 Room Air 06/12/17 06:31 36.5 76 16 141/71 (94) 94 Room Air Notes Mental Status: alert / awake / arousable, participated in evaluation Pt Amnestic to Procedure: Yes Nausea / Vomiting: adequately controlled Pain: adequately controlled Airway Patency, RR, SpO2: stable & adequate BP & HR: stable & adequate Hydration State: stable & adequate Anesthetic Complications: no major complications apparent
[2017-06-12 07:46] VITALS: BP 159/87; PULSE 59; O2SAT 95
== END | disposition home or self-care (01) ==
LOC: X.SURG 06:10
PROVIDERS: ATTEND Specialist
DX: H25.12 Age-related nuclear cataract, left eye (principal); G47.33 Obstructive sleep apnea (adult) (pediatric); I10 Essential (primary) hypertension; Z95.0 Presence of cardiac pacemaker

== ENCOUNTER 2019-07-25 21:54 | Inpatient (IN) ==
[2019-07-25] MEDS ORDERED: SODIUM CHLORIDE 0.9% 1000ML 1,000 ML IV SCH (22:30)
[2019-07-25 22:37] LABS: Basophils # (auto) 0.02 K/uL (0-0.2); Basophils % (auto) 0.3 %; Eosinophils # (auto) 0.14 K/uL (0-0.5); Eosinophils % (auto) 1.8 %; Hematocrit (blood only) 37.9 % (42-52); Hemoglobin 12.7 g/dL (14.0-18.0); Immature Granulocytes # (auto) 0.02 K/uL (0.00-0.02); Immature Granulocytes % (auto) 0.3 %; Lymphocytes # (auto) 0.95 K/uL (1.2-3.4); Lymphocytes % (auto) 12.3 %; Mean Corpuscular Hemoglobin 32.9 pg (25-34); Mean Corpuscular Hgb Conc 33.5 g/dL (32-36); Mean Corpuscular Volume 98.2 fL (80-100); Mean Platelet Volume 9.9 fL (7.4-10.4); Monocytes # (auto) 0.88 K/uL (0.11-0.59); Monocytes % (auto) 11.4 %; Neutrophils # (auto) 5.74 K/uL (1.4-6.5); Neutrophils % (auto) 73.9 %; Platelet Count 178 K/uL (130-400); RDW Standard Deviation 46.2 fL (36.4-46.3); Red Blood Count 3.86 M/uL (4.7-6.1); White Blood Count 7.75 K/uL (4.8-10.8)
--- NOTE | 2019-07-25 22:48 | XRay Report ---
XR chest 1V portable CLINICAL HISTORY: SEPSIS dyspnea COMPARISON STUDY: 04/26/2019 FINDINGS: Minimal parenchymal infiltrate left lung base. Mild stable cardiomegaly. Prior median alexandre otomy. Right lung is clear. IMPRESSION: Minimal parenchymal infiltrate/atelectasis left base. ACT 112: Negative or not required by law. The above report was generated using voice recognition software. It may contain grammatical, syntax or spelling errors. Electronically signed by: Eugenio Elizondo M.D. 07/25/2019 10:47 PM
--- NOTE | 2019-07-25 22:55 | CT Scan Report ---
CT head/brain wo con CT DOSE: 614.27 mGy.cm HISTORY: Mental status change ams TECHNIQUE: Multiaxial CT images of the head were performed without the use of intravenous contrast. A dose lowering technique was utilized adhering to the principles of ALARA. Comparison: None. Findings: Moderate mucosal thickening of the ethmoid sinuses. The calvarium and skull base are intact . The ventricles and sulci are within normal limits. There is no mass, hematoma, midline shift, or ac [place] infarct. Age-related atrophy and chronic small vessel change Impression: 1. No acute intracranial abnormality. 2. Age-related atrophy and chronic small vessel change. 3. Mild to moderate mucosal thickening of the ethmoid sinuses. ACT 112: Negative or not required by law. The above report was generated using voice recognition software. It may contain grammatical, syntax or spelling errors. Electronically signed by: Eugenio Elizondo M.D. 07/25/2019 10:54 PM
[2019-07-25] MEDS ORDERED: ACETAMINOPHEN 1,000 MG/100 ML VIAL IV STA (22:59)
[2019-07-25 23:23] LABS: Base Excess VBG 2.6 mEq/L; Oxygen Saturation VBG 83.9 %; pH VBG 7.48 (7.36-7.41)
[2019-07-25 23:30] LABS: INR 1.1 (0.9-1.1); Partial Thromboplastin Ratio 0.8; Partial Thromboplastin Time 22.4 Seconds (21.0-31.0)
[2019-07-25 23:38] LABS: Alanine Aminotransferase < 6 U/L (12-78); Albumin Level 3.2 gm/dl (3.4-5.0); Aspartate Aminotransferase 13 U/L (15-37); BUN Creatinine Ratio 16.8 (10-20); Blood Urea Nitrogen 20 mg/dl (7-18); Carbon Dioxide 25 mmol/L (21-32); Chloride 106 mmol/L (98-107); Est GFR (Non-African American) 54.4; Glucose 123 mg/dl (70-99); Magnesium 1.4 mg/dl (1.8-2.4); Sodium 136 mmol/L (136-145)
[2019-07-25 23:43] LABS: Albumin Globulin Ratio 0.8 (0.9-2); Alkaline Phosphatase 52 U/L (45-117); Bilirubin,Total 0.6 mg/dl (0.2-1); Globulin 4.1 gm/dl (2.5-4.0); Total Protein 7.3 gm/dl (6.4-8.2); Troponin I 0.034 ng/ml (0-0.045)
[2019-07-25] MEDS ORDERED: AZITHROMYCIN 500 MG in DEXTROSE 5% 250 ML IV STA (23:59)
[2019-07-25] MEDS ORDERED: cefTRIAXone SODIUM 1,000 MG/50 ML BAG IV STA (23:59)
[2019-07-26 00:03] LABS: Influenza A virus by PCR Neg for Influ A (Neg); Influenza B virus by PCR Neg for Influ B (Neg)
--- NOTE | 2019-07-26 00:22 | Emergency Department Note ---
Entered by Cici Giordano acting as a scribe for Juan Andrade History of Present Illness General Chief complaint: Weakness Stated complaint: WEAKNESS, UNABLE TO AMBULATE, UPPER RESP. INFECTIO Time Seen by Provider: 07/25/19 22:24 Source: family () Limitations: no limitations History of Present Illness Onset (ago): hour(s) (a few) Location: head, upper extremity and lower extremity Pain Consistency: + constant Quality: + other (weakness) Associated symptoms: + denies other symptoms (LOC, syncope) and + other (fatigue) The patient is a 89 year old male who presents to the Emergency Room with complaints of constant weakness that began a few hours ago. The patient's , at bedside, reports that the patient difficulty ambulating, noting that he normally walks using a walker. She complains that the patient is fatigued and lethargic. The patient's states that he's confused and "not with it." She denies any LOC or syncope. The patient's notes that he took Mucinex for a cold at 14:00, about 8 hours ago. Home Medications Home Medications Medication Instructions Recorded Confirmed Type cholecalciferol (vitamin D3) 25 1,000 units PO BID cap 02/18/19 07/25/19 History mcg (1,000 unit) capsule dorzolamide 2 % eye drops 1 drops OP BID ml 02/18/19 07/25/19 History multivitamin 1 tab PO QAM 02/18/19 07/25/19 History simvastatin 20 mg tablet 20 mg PO HS #90 tab 02/18/19 07/25/19 History carbidopa 25 mg-levodopa 100 mg 0.5 tab PO TID 30 Days #45 tab 05/11/19 07/25/19 Rx tablet aspirin 25 mg-dipyridamole 200 mg 1 cap PO HS #90 cap 06/23/19 07/25/19 Rx capsule,ext.release 12 hr multiphase lidocaine [Lidocaine Pain Relief] 1 patch TOPICAL DAILY PRN 07/25/19 07/25/19 History Allergies Allergy/AdvReac Type Severity Reaction Status Date / Time travoprost Allergy Unknown redness Verified 07/25/19 22:54 No Known Drug Allergies Allergy Verified 07/25/19 22:54 fructose AdvReac Intermediate diarrhea Verified 07/25/19 22:54 timolol AdvReac Mild IRRITATION Verified 07/25/19 22:54 Egg Derived AdvReac Unknown diarrhea Verified 07/25/19 22:54 Past Med/Surg History Medical History AAA (abdominal aortic aneurysm) (Acute 10/19/13) Bradycardia (Acute) Pacemaker (Chronic) Parkinsonism (Chronic) Second degree AV block, Mobitz type II (Acute) Syncope Surgical History H/O varicose vein ligation History of colonoscopy S/P aortic aneurysm repair S/P appendectomy S/P CABG (coronary artery bypass graft) S/P cholecystectomy Status post Mohs surgery Family History Mother Colorectal cancer Father Cardiac disorder Denies family history of Prostate cancer Social History Preferred Language: French Communication Ability: Effective Visual Impairment: No Limitations Hearing Ability: Normal marital status: Current Living Situation: Spouse current occupational status: retired Feels Safe at Home: Yes Smoking Status: Never smoker Hx Alcohol Use: Yes (social) Hx Substance Use: No Childhood Exposure to Second-Hand Smoke: No Review of Systems See HPI for pertinent positives & negatives. and A total of 10 systems reviewed and were otherwise negative Physical Exam Vital Signs Vital Signs - 24 hr 07/25/19 22:07 07/25/19 22:11 07/25/19 22:15 Temperature 38.6 C H Temperature Source Oral Pulse Rate 98 H 86 Pulse Rate [Finger] Pulse Rate from SpO2 Sensor Respiratory Rate 9 L Blood Pressure 174/104 H 174/104 H Blood Pressure [Left Arm] Blood Pressure Mean 127 136 Blood Pressure Mean [Left Arm] Blood Pressure Position Lying Pulse Oximetry 92 Oxygen Delivery Method Room Air Room Air Oxygen Flow Rate Sepsis Recent Fever Within 48 Hours Yes Sepsis New/Unexplained Change in Mental Status Yes Sepsis Action Taken by Nursing No Action Required 07/25/19 23:21 07/25/19 23:22 07/25/19 23:24 Temperature Temperature Source Pulse Rate 81 84 Pulse Rate [Finger] 81 Pulse Rate from SpO2 Sensor 81 83 Respiratory Rate 17 25 H 17 Blood Pressure 140/84 Blood Pressure [Left Arm] 140/84 Blood Pressure Mean 97 Blood Pressure Mean [Left Arm] 102 Blood Pressure Position Pulse Oximetry 91 92 92 Oxygen Delivery Method Room Air Oxygen Flow Rate Sepsis Recent Fever Within 48 Hours Sepsis New/Unexplained Change in Mental Status Sepsis Action Taken by Nursing 07/25/19 23:30 07/25/19 23:31 07/25/19 23:40 Temperature Temperature Source Pulse Rate 81 79 88 Pulse Rate [Finger] Pulse Rate from SpO2 Sensor 86 86 81 Respiratory Rate 22 20 23 Blood Pressure 129/76 Blood Pressure [Left Arm] Blood Pressure Mean 80 Blood Pressure Mean [Left Arm] Blood Pressure Position Pulse Oximetry 91 91 93 Oxygen Delivery Method Oxygen Flow Rate Sepsis Recent Fever Within 48 Hours Sepsis New/Unexplained Change in Mental Status Sepsis Action Taken by Nursing 07/25/19 23:45 07/25/19 23:50 07/25/19 23:57 Temperature Temperature Source Pulse Rate 82 82 Pulse Rate [Finger] Pulse Rate from SpO2 Sensor 75 84 Respiratory Rate 22 6 L Blood Pressure 117/65 Blood Pressure [Left Arm] Blood Pressure Mean 99 Blood Pressure Mean [Left Arm] Blood Pressure Position Pulse Oximetry 93 91 95 Oxygen Delivery Method Nasal Cannula Oxygen Flow Rate 2 Sepsis Recent Fever Within 48 Hours Sepsis New/Unexplained Change in Mental Status Sepsis Action Taken by Nursing GENERAL: He is alert and oriented x2. HENT: Exam performed. - Head: Normocephalic and atraumatic. - Right Ear: External ear normal. No mastoid tenderness. - Left Ear: External ear normal. No mastoid tenderness. - Mouth/Throat: The oropharynx is clear and moist. No trismus in the jaw. No dental abscesses or uvula swelling. No oropharyngeal exudate or tonsillar abscesses. EYES: Conjunctivae and EOM are normal. Pupils are equal, round, and reactive to light. Right eye exhibits no discharge. Left eye exhibits no discharge. No scleral icterus. NECK: Normal range of motion. Neck supple. No JVD present. No spinous process tenderness present. No carotid bruit present. No rigidity. No tracheal deviation and normal range of motion present. No Brudzinski's sign and no Kernig's sign noted. CV: Normal rate, regular rhythm, normal heart sounds and intact distal pulses. There is no peripheral edema. Palpable radial pulses bue. PULM/CHEST: Rhonchi bilaterally - Chest Wall: He exhibits no tenderness. ABD: The abdomen is soft. Bowel sounds are normal. He has no distension. No mass is present. There is no tenderness. There is no rebound, no guarding, no Barba's sign and no tenderness at McBurney's point. Rovsig negative. MUSC/SKEL: Normal range of motion. There is no peripheral edema, tenderness or deformity. LYMPH: No cervical adenopathy. NEURO: Alert and oriented x2. Motor and sensation grossly intact. SKIN: Skin is warm and dry. He is not diaphoretic. Course Course 2225: The patient was evaluated in room C06. A complete history and physical exam was performed. 2358: The patient became hypoxic with an oxygen saturation at 88% on room air. He was given 2L of supplemental oxygen, and it improved his oxygen saturation. The patient had no leukocytosis, and his lactic acid was within normal limits. However, his magnesium was 1.4. His chest X-ray showed minimal parenchymal in filtrates versus atelectasis at the left base. Given the patient's fever, hypoxia, and rhonchi on lung auscultation is thought that the patient does have an infiltrate at the left base and will be treated for community-acquired pneumonia. He was treated with antibiotics for pneumonia and magnesium will be replaced. The patient will be further evaluated by Dr. Villa and his team will be notified. Administered Medications Sodium Chloride (Nss 1000ml) 1,000 mls @ 150 mls/hr IV .[id number] [facility] Stop: 08/24/19 22:29 Last Admin: 07/25/19 23:22 Dose: 150 mls/hr Documented by: [id number] Discontinued Medications Acetaminophen (Ofirmev) 1,000 mg in 100 mls @ 400 mls/hr IV NOW STA Stop: 07/25/19 23:13 Last Infusion: 07/25/19 23:41 Dose: 0 mls/hr Documented by: [id number] Admin: 07/25/19 23:23 Dose: 400 mls/hr Documented by: [id number] Critical Care Time Critical Care Time: Yes Total Critical Care Time: 35 I have personally spent greater than 35 minutes of critical care time in the direct management of this patient. This includes bedside care, interpretation of diagnostic studies, and testing, discussion with consultants, patient, and family members, and other required patient management activities. This 35 minutes is in excess of all separately billable procedures. Medical Decision Making Medical Records Attestation: I reviewed the patient's medical records. Home Medications Current Medication List: was personally reviewed by me Laboratory Data Attestation: I reviewed the patient's lab results. Result diagrams: 07/25/19 22:20 07/25/19 23:07 Lab Results 07/25/19 07/25/19 07/25/19 Range/Units 22:20 22:20 22:20 WBC 7.75 (4.8-10.8) K/uL RBC 3.86 L (4.7-6.1) M/uL Hgb 12.7 L (14.0-18.0) g/dL Hct 37.9 L (42-52) % MCV 98.2 (80-100) fL MCH 32.9 (25-34) pg MCHC 33.5 (32-36) g/dL RDW Std Deviation 46.2 (36.4-46.3) fL RDW Coeff of Tien 13.0 (11.5-14.5) % Plt Count 178 (130-400) K/uL MPV 9.9 (7.4-10.4) fL Immature Gran % (Auto) 0.3 % Neut % (Auto) 73.9 % Lymph % (Auto) 12.3 % [place] % (Auto) 11.4 % Eos % (Auto) 1.8 % Baso % (Auto) 0.3 % Immature Gran # (Auto) 0.02 (0.00-0.02) K/uL Neut # (Auto) 5.74 (1.4-6.5) K/uL Lymph # (Auto) 0.95 L (1.2-3.4) K/uL [place] # (Auto) 0.88 H (0.11-0.59) K/uL Eos # (Auto) 0.14 (0-0.5) K/uL Baso # (Auto) 0.02 (0-0.2) K/uL PT Cancelled INR Cancelled APTT Cancelled PTT Ratio Cancelled VBG pH (7.36-7.41) VBG pCO2 (38-50) mmHg VBG pO2 mmHg VBG HCO3 mmol/L VBG O2 Saturation % VBG Base Excess mEq/L Barometric Pressure mm/Hg Sodium Cancelled Potassium Cancelled Chloride Cancelled Carbon Dioxide Cancelled Anion Gap Cancelled BUN Cancelled Creatinine Cancelled Est Cr Clr Drug Dosing Cancelled Est GFR ( Amer) Cancelled Est GFR (Non-Af Amer) Cancelled BUN/Creatinine Ratio Cancelled Glucose Cancelled Lactate (0.4-2.0) mmol/L Calcium Cancelled Magnesium Cancelled Total Bilirubin Cancelled AST Cancelled ALT Cancelled Alkaline Phosphatase Cancelled Troponin I Cancelled Total Protein Cancelled Albumin Cancelled Globulin Cancelled Albumin/Globulin Ratio Cancelled Procalcitonin Influenza Type A (PCR) (Neg) Influenza Type B (PCR) (Neg) 07/25/19 07/25/19 07/25/19 Range/Units 22:20 23:06 23:06 WBC (4.8-10.8) K/uL RBC (4.7-6.1) M/uL Hgb (14.0-18.0) g/dL Hct (42-52) % MCV (80-100) fL MCH (25-34) pg MCHC (32-36) g/dL RDW Std Deviation (36.4-46.3) fL RDW Coeff of Tien (11.5-14.5) % Plt Count (130-400) K/uL MPV (7.4-10.4) fL Immature Gran % (Auto) % Neut % (Auto) % Lymph % (Auto) % [place] % (Auto) % Eos % (Auto) % Baso % (Auto) % Immature Gran # (Auto) (0.00-0.02) K/uL Neut # (Auto) (1.4-6.5) K/uL Lymph # (Auto) (1.2-3.4) K/uL [place] # (Auto) (0.11-0.59) K/uL Eos # (Auto) (0-0.5) K/uL Baso # (Auto) (0-0.2) K/uL PT INR APTT PTT Ratio VBG pH 7.48 H (7.36-7.41) VBG pCO2 36 L (38-50) mmHg VBG pO2 48 mmHg VBG HCO3 26 mmol/L VBG O2 Saturation 83.9 % VBG Base Excess 2.6 mEq/L Barometric Pressure 736.9 mm/Hg Sodium Potassium Chloride Carbon Dioxide Anion Gap BUN Creatinine Est Cr Clr Drug Dosing Est GFR ( Amer) Est GFR (Non-Af Amer) BUN/Creatinine Ratio Glucose Lactate 0.8 (0.4-2.0) mmol/L Calcium Magnesium Total Bilirubin AST ALT Alkaline Phosphatase Troponin I Total Protein Albumin Globulin Albumin/Globulin Ratio Procalcitonin Cancelled Influenza Type A (PCR) (Neg) Influenza Type B (PCR) (Neg) 07/25/19 07/25/19 07/25/19 Range/Units 23:07 23:07 23:07 WBC (4.8-10.8) K/uL RBC (4.7-6.1) M/uL Hgb (14.0-18.0) g/dL Hct (42-52) % MCV (80-100) fL MCH (25-34) pg MCHC (32-36) g/dL RDW Std Deviation (36.4-46.3) fL RDW Coeff of Tien (11.5-14.5) % Plt Count (130-400) K/uL MPV (7.4-10.4) fL Immature Gran % (Auto) % Neut % (Auto) % Lymph % (Auto) % [place] % (Auto) % Eos % (Auto) % Baso % (Auto) % Immature Gran # (Auto) (0.00-0.02) K/uL Neut # (Auto) (1.4-6.5) K/uL Lymph # (Auto) (1.2-3.4) K/uL [place] # (Auto) (0.11-0.59) K/uL Eos # (Auto) (0-0.5) K/uL Baso # (Auto) (0-0.2) K/uL PT 11.0 INR 1.1 APTT 22.4 PTT Ratio 0.8 VBG pH (7.36-7.41) VBG pCO2 (38-50) mmHg VBG pO2 mmHg VBG HCO3 mmol/L VBG O2 Saturation % VBG Base Excess mEq/L Barometric Pressure mm/Hg Sodium 136 Potassium 4.0 Chloride 106 Carbon Dioxide 25 Anion Gap 5.0 BUN 20 H Creatinine 1.18 Est Cr Clr Drug Dosing 48.0 Est GFR ( Amer) 63.0 Est GFR (Non-Af Amer) 54.4 BUN/Creatinine Ratio 16.8 Glucose 123 H Lactate (0.4-2.0) mmol/L Calcium 9.0 Magnesium 1.4 L Total Bilirubin 0.6 AST 13 L ALT < 6 L Alkaline Phosphatase 52 Troponin I 0.034 Total Protein 7.3 Albumin 3.2 L Globulin 4.1 H Albumin/Globulin Ratio 0.8 L Procalcitonin < 0.05 Influenza Type A (PCR) (Neg) Influenza Type B (PCR) (Neg) 07/25/19 Range/Units 23:10 WBC (4.8-10.8) K/uL RBC (4.7-6.1) M/uL Hgb (14.0-18.0) g/dL Hct (42-52) % MCV (80-100) fL MCH (25-34) pg MCHC (32-36) g/dL RDW Std Deviation (36.4-46.3) fL RDW Coeff of Tien (11.5-14.5) % Plt Count (130-400) K/uL MPV (7.4-10.4) fL Immature Gran % (Auto) % Neut % (Auto) % Lymph % (Auto) % [place] % (Auto) % Eos % (Auto) % Baso % (Auto) % Immature Gran # (Auto) (0.00-0.02) K/uL Neut # (Auto) (1.4-6.5) K/uL Lymph # (Auto) (1.2-3.4) K/uL [place] # (Auto) (0.11-0.59) K/uL Eos # (Auto) (0-0.5) K/uL Baso # (Auto) (0-0.2) K/uL PT INR APTT PTT Ratio VBG pH (7.36-7.41) VBG pCO2 (38-50) mmHg VBG pO2 mmHg VBG HCO3 mmol/L VBG O2 Saturation % VBG Base Excess mEq/L Barometric Pressure mm/Hg Sodium Potassium Chloride Carbon Dioxide Anion Gap BUN Creatinine Est Cr Clr Drug Dosing Est GFR ( Amer) Est GFR (Non-Af Amer) BUN/Creatinine Ratio Glucose Lactate (0.4-2.0) mmol/L Calcium Magnesium Total Bilirubin AST ALT Alkaline Phosphatase Troponin I Total Protein Albumin Globulin Albumin/Globulin Ratio Procalcitonin Influenza Type A (PCR) Neg for Influ A (Neg) Influenza Type B (PCR) Neg for Influ B (Neg) Imaging Data Radiologist's Impression: Radiology results as stated below per my review and the radiologist's interpretation: XR chest 1V portable CLINICAL HISTORY: SEPSIS dyspnea COMPARISON STUDY: 04/26/2019 FINDINGS: Minimal parenchymal infiltrate left lung base. Mild stable cardiomegaly. Prior median sternotomy. Right lung is clear. IMPRESSION: Minimal parenchymal infiltrate/atelectasis left base. ACT 112: Negative or not required by law. The above report was generated using voice recognition software. It may contain grammatical, syntax or spelling errors. Electronically signed by: Eugenio Elizondo M.D. 07/25/2019 10:[address] head/brain wo con CT DOSE: 614.27 mGy.cm HISTORY: Mental status change ams TECHNIQUE: Multiaxial CT images of the head were performed without the use of intravenous contrast. A dose lowering technique was utilized adhering to the principles of ALARA. Comparison: None. Findings: Moderate mucosal thickening of the ethmoid sinuses. The calvarium and skull base are intact. The ventricles and sulci are within normal limits. There is no mass, hematoma, midline shift, or acute infarct. Age-related atrophy and chronic small vessel change Impression: 1. No acute intracranial abnormality. 2. Age-related atrophy and chronic small vessel change. 3. Mild to moderate mucosal thickening of the ethmoid sinuses. ACT 112: Negative or not required by law. The above report was generated using voice recognition software. It may contain grammatical, syntax or spelling errors. Electronically signed by: Eugenio Elizondo M.D. 07/25/2019 10:54 PM ECG Data Attestation: I personally reviewed and interpreted this ECG as follows: Indication: + weakness Rate (beats per minute): 94 Rhythm: + other (paced) ECG Findings: + Other (W[place] 204, QRS 162, and QTC 490; no ectopy) Comparison ECG Date: from (April 2019) Change: no significant change Blood Pressure Blood Pressure Findings: Elevated blood pressure Blood Pressure Disposition: further management by hospitalist CONCEPCION Camara The patient became hypoxic with an oxygen saturation at 88% on room air. He was given 2L of supplemental oxygen, and it improved his oxygen saturation. The patient had no leukocytosis, and his lactic acid was within normal limits. However, his magnesium was 1.4. His chest X-ray showed minimal parenchymal infiltrates versus atelectasis at the left base. Given the patient's fever, hypoxia, and rhonchi on lung auscultation is thought that the patient does have an infiltrate at the left base and will be treated for community-acquired pneumonia. He was treated with antibiotics for pneumonia and magnesium will be replaced. The patient will be further evaluated by Dr. Villa and his team will be notified. Impression & Plan Hypoxia, Pneumonia, Hypomagnesemia Discharge Plan Visit Data Chief Complaint: Weakness Stated Complaint: WEAKNESS, UNABLE TO AMBULATE, UPPER RESP. INFECTIO ED Provider: Juan Andrade Discharge Problem: Hypoxia, Pneumonia, Hypomagnesemia Patient Disposition: Being Evaluated by Hospitalist Forms Stand Alone Forms: My [facility] [employer] [employer] Prescriptions Prescriptions: No Action aspirin-dipyridamole 25-200 mg capsule, ER multiphase 12 hr 1 cap PO HS Qty: 90 RF: 0 multivitamin tablet 1 tab PO QAM RF: 0 carbidopa-levodopa 25-100 mg tablet 0.5 tab PO TID 30 Days Qty: 45 RF: 5 simvastatin 20 mg tablet 20 mg PO HS Qty: 90 RF: 0 dorzolamide 2 % drops 1 drops OP BID RF: 0 cholecalciferol (vitamin D3) 1,000 unit capsule 1,000 units PO BID RF: 0 lidocaine [Lidocaine Pain Relief] 4 % Adhesive Patch,Medicated 1 patch TOPICAL DAILY PRN (Reason: Pain) RF: 0 Referrals Referrals: Adrian Soliman DO [Primary Care Provider] - Discharge Problem: Pneumonia Qualifiers: Pneumonia type: due to unspecified organism Laterality: left Lung location: unspecified part of lung Qualified Code(s): J18.9 - Pneumonia, unspecified organism The scribe's documentation has been prepared under my direction and personally reviewed by me in its entirety. I confirm that the note above accurately reflects all work, treatment, procedures, and medical decision making performed by me.
--- NOTE | 2019-07-26 00:36 | History & Physical Report ---
Date of Service July 26, 2019 Assessment & Plan (1) Confusion: Confusion with generalized weakness, that his reports is worse than usual. Has had recent issues with low back pain, for which he received a Lidoderm patch of his PCP, and a very mild URI. He received ceftriaxone and azithromycin IV in the ED, but I would not continue, as he does not appear to have a significant URI at this time. His last admission was for similar symptoms, at that time minute amount he was a low magnesium of 1.7. Today his magnesium is at 1.4. Review of medications and other searches does not give an obvious reason for his low magnesium other than that of diet. He does have a history of complex sleep apnea syndrome, as a cause of nocturnal hypoxemia, which may also possibly contribute to progression of symptoms. Present on Admission?: Yes (2) Weakness generalized: See above Present on Admission?: Yes (3) Hypomagnesemia: We will give a total of magnesium sulfate 4 g IV, and repeat in the a.m. He was given dietary information at last hospitalization, and this will need to be reiterated prior to discharge. Present on Admission?: Yes (4) Cerebrovascular disease: Cerebrovascular disease/CAD/atrial fibrillation- Continue aspirin/dipyridamole. CT of head negative. Unable to do MRI due to presence of pacer. Present on Admission?: Yes (5) Coronary artery disease: See above Present on Admission?: Yes (6) Hyperlipidemia: Continue simvastatin 20 mg at bedtime Present on Admission?: Yes (7) Diabetes mellitus, type II: Placed on Accu-Cheks before meals and at bedtime with NovoLog coverage per scale Present on Admission?: Yes (8) Parkinsonism: Continue carbidopa levodopa. It is possible the progression of his parkinsonism, may be contributing to his symptoms of confusion, generalized fatigue and dementia. Present on Admission?: Yes (9) Atrial fibrillation: See above Present on Admission?: Yes History of Present Illness Chief Complaint: Patient presents to the emergency department with severe fatigue, low back pain, worsened confusion than usual, and dyspnea on exertion Primary Care Provider: Adrian Soliman, The patient is a 89-year-old male with a past medical history including parkinsonism, NSVT, atrial fibrillation, hypertension, second-degree AV block, complex sleep apnea syndrome, gait disorder, vertigo, BPH with LUTS, CKD, hyperlipidemia, diabetes mellitus type 2, CAD, cerebrovascular disease, AAA, pacemaker, second-degree heart block Mobitz 2, and syncope. The patient had been seen at his outpatient PCPs office on 07/24 for these symptoms, and was given a Lidoderm patch for the low back pain, and it was advised to take symptomatic treatment for the rhinorrhea which she has been experiencing. His reports that because he was more confused than usual and more delusional than usual, she brought him into the ED for assessment. The patient's contribution to his HPI and review of systems is somewhat limited due to underlying dementia and illness. Allergies Allergy/AdvReac Type Severity Reaction Status Date / Time travoprost Allergy Unknown redness Verified 07/25/19 22:54 No Known Drug Allergies Allergy Verified 07/25/19 22:54 fructose AdvReac Intermediate diarrhea Verified 07/25/19 22:54 timolol AdvReac Mild IRRITATION Verified 07/25/19 22:54 Egg Derived AdvReac Unknown diarrhea Verified 07/25/19 22:54 Home Medications Home Medications Medication Instructions Recorded Confirmed Type cholecalciferol (vitamin D3) 25 1,000 units PO BID cap 02/18/19 07/25/19 History mcg (1,000 unit) capsule dorzolamide 2 % eye drops 1 drops OP BID ml 02/18/19 07/25/19 History multivitamin 1 tab PO QAM 02/18/19 07/25/19 History simvastatin 20 mg tablet 20 mg PO HS #90 tab 02/18/19 07/25/19 History carbidopa 25 mg-levodopa 100 mg 0.5 tab PO TID 30 Days #45 tab 05/11/19 07/25/19 Rx tablet aspirin 25 mg-dipyridamole 200 mg 1 cap PO HS #90 cap 06/23/19 07/25/19 Rx capsule,ext.release 12 hr multiphase lidocaine [Lidocaine Pain Relief] 1 patch TOPICAL DAILY PRN 07/25/19 07/25/19 History Past Med/Surg History Medical History AAA (abdominal aortic aneurysm) (Acute 10/19/13) Bradycardia (Acute) Pacemaker (Chronic) Parkinsonism (Chronic) Second degree AV block, Mobitz type II (Acute) Syncope Surgical History H/O varicose vein ligation History of colonoscopy S/P aortic aneurysm repair S/P appendectomy S/P CABG (coronary artery bypass graft) S/P cholecystectomy Status post Mohs surgery Family History Mother Colorectal cancer Father Cardiac disorder Denies family history of Prostate cancer Social History Preferred Language: Monegasque Communication Ability: Effective Visual Impairment: No Limitations Hearing Ability: Normal marital status: Current Living Situation: Spouse current occupational status: retired Feels Safe at Home: Yes Smoking Status: Never smoker Hx Alcohol Use: Yes (social) Hx Substance Use: No Childhood Exposure to Second-Hand Smoke: No Review of Systems Review of Systems: Unobtainable due to cognitive status The patient's reports that he had been in his usual state of health until the past few days when he began experience worsening low back pain and rhinorrhea, which he had likely gotten from her, as she had the symptoms first. Physical Exam Physical Exam: The patient is awake, does respond to questions slowly, when he can. He is normocephalic and atraumatic, lying in bed, appears fatigued, and in no acute distress. HEENT--PERRL, EOMI, mucous membranes and oropharynx mildly dry. Neck--supple. No JVD. No bruits. Thyroid normal, trachea midline, no adenopathy. Heart--normal S1 and S2. No murmurs, rubs or gallops. Lungs--clear bilaterally, no respiratory distress, no accessory muscle use. Abdomen--normal bowel sounds and soft. Nontender. Nondistended. Extremities--no cyanosis or clubbing. No edema. Dermatologic--normal skin turgor, normal color, no abnormal lymph nodes, no rash. Neurologic--cranial nerves II through XII grossly intact. Rheumatologic--normal range of motion. Psychiatric--normal affect. Results & Data Vital Signs (Past 12 Hours) Vital Signs Temp Pulse Pulse Resp BP BP Pulse Ox 07/25/19 23:57 95 07/25/19 23:50 82 6 L 91 07/25/19 23:45 82 22 117/65 93 07/25/19 23:40 88 23 93 07/25/19 23:31 79 20 91 07/25/19 23:30 81 22 129/76 91 07/25/19 23:24 81 17 140/84 92 07/25/19 23:22 84 25 H 92 07/25/19 23:21 81 17 140/84 91 07/25/19 22:11 86 9 L 174/104 H 07/25/19 22:07 101.5 F H 98 H 174/104 H 92 Laboratory Results Laboratory Results WBC 7.75 K/uL (4.8-10.8) 07/25/19:20 RBC 3.86 M/uL (4.7-6.1) L 07/25/19 22:20 Hgb 12.7 g/dL (14.0-18.0) L 07/25/19:20 Hct 37.9 % (42-52) L 07/25/19:20 MCV 98.2 fL (80-100) 07/25/19 22:20 MCH 32.9 pg (25-34) 07/25/19: MCHC 33.5 g/dL (32-36) 07/25/19:20 RDW Std Deviation 46.2 fL (36.4-46.3) 07/25/19: RDW Coeff of Tien 13.0 % (11.5-14.5) 07/25/19: Plt Count 178 K/uL (130-400) 07/25/19:20 MPV 9.9 fL (7.4-10.4) 07/25/19 22:20 Immature Gran % (Auto) 0.3 % 07/25/19 22:20 Neut % (Auto) 73.9 % 07/25/19 22:20 Lymph % (Auto) 12.3 % 07/25/19:20 Travis % (Auto) 11.4 % 07/25/19 22:20 Eos % (Auto) 1.8 % 07/25/19 22:20 Baso % (Auto) 0.3 % 07/25/19:20 Immature Gran # (Auto) 0.02 K/uL (0.00-0.02) 07/25/19 22:20 Neut # (Auto) 5.74 K/uL (1.4-6.5) 07/25/19 22:20 Lymph # (Auto) 0.95 K/uL (1.2-3.4) L 07/25/19 22:20 Travis # (Auto) 0.88 K/uL (0.11-0.59) H 07/25/19 22:20 Eos # (Auto) 0.14 K/uL (0-0.5) 07/25/19 22:20 Baso # (Auto) 0.02 K/uL (0-0.2) 07/25/19 22:20 PT 11.0 Seconds (9.0-12.0) 07/25/19 23:07 INR 1.1 (0.9-1.1) 07/25/19 23:07 APTT 22.4 Seconds (21.0-31.0) 07/25/19 23:07 PTT Ratio 0.8 07/25/19 23:07 VBG pH 7.48 (7.36-7.41) H 07/25/19 23:06 VBG pCO2 36 mmHg (38-50) L 07/25/19 23:06 VBG pO2 48 mmHg 07/25/19 23:06 VBG HCO3 26 mmol/L 07/25/19 23:06 VBG O2 Saturation 83.9 % 07/25/19 23:06 VBG Base Excess 2.6 mEq/L 07/25/19 23:06 Barometric Pressure 736.9 mm/Hg 07/25/19 23:06 Sodium 136 mmol/L (136-145) 07/25/19 23:07 Potassium 4.0 mmol/L (3.5-5.1) 07/25/19 23:07 Chloride 106 mmol/L (98-107) 07/25/19 23:07 Carbon Dioxide 25 mmol/L (21-32) 07/25/19 23:07 Anion Gap 5.0 (3-11) 07/25/19 23:07 BUN 20 mg/dl (7-18) H 07/25/19 23:07 Creatinine 1.18 mg/dl (0.6-1.4) 07/25/19 23:07 Est Cr Clr Drug Dosing 48.0 ml/min 07/25/19 23:07 Est GFR ( Amer) 63.0 07/25/19 23:07 Est GFR (Non-Af Amer) 54.4 07/25/19 23:07 BUN/Creatinine Ratio 16.8 (10-20) 07/25/19 23:07 Glucose 123 mg/dl (70-99) H 07/25/19 23:07 Lactate 0.8 mmol/L (0.4-2.0) 07/25/19 23:06 Calcium 9.0 mg/dl (8.5-10.1) 07/25/19 23:07 Magnesium 1.5 mg/dl (1.8-2.4) L 07/26/19 01:58 Total Bilirubin 0.6 mg/dl (0.2-1) 07/25/19 23:07 AST 13 U/L (15-37) L 07/25/19 23:07 ALT < 6 U/L (12-78) L 07/25/19 23:07 Alkaline Phosphatase 52 U/L (45-117) 07/25/19 23:07 Troponin I 0.046 ng/ml (0-0.045) H* 07/26/19 01:58 Total Protein 7.3 gm/dl (6.4-8.2) 07/25/19 23:07 Albumin 3.2 gm/dl (3.4-5.0) L 07/25/19 23:07 Globulin 4.1 gm/dl (2.5-4.0) H 07/25/19 23:07 Albumin/Globulin Ratio 0.8 (0.9-2) L 07/25/19 23:07 25-OH Vitamin D Total 46.6 ng/ml (30-100) 07/25/19 23:07 Procalcitonin < 0.05 ng/ml (0-0.5) 07/25/19 23:07 Influenza Type A (PCR) Neg for Influ A (Neg) 07/25/19 23:10 Influenza Type B (PCR) Neg for Influ B (Neg) 07/25/19 23:10 Diagnostic Findings [facility] JEFF Castañeda [phone] XRay Report Patient: MICHELL CALZADA Date: 07/25/19 MR#: [id number]: [address] [place] [address] Acct ID:[id number]: [facility] [place]: [place] [address] Age: 89Location: ED Sex: M Room/Bed: Att Phy:Diagnosis: WEAKNESS, UNABLE TO AMBULATE, UPPER RESP. INFECTIO Lesly Phy: Adrian Soliman, DOService Date: 07/25/19 Fam Phy:Interpreting Phy: Eugenio Elizondo MD Admit Phy: Ordering Phy: Juan Andrade MD cc: ~ XR chest 1V portable CLINICAL HISTORY: SEPSIS dyspnea COMPARISON STUDY: 04/26/2019 FINDINGS: Minimal parenchymal infiltrate left lung base. Mild stable cardiomegaly. Prior median sternotomy. Right lung is clear. IMPRESSION: Minimal parenchymal infiltrate/atelectasis left base. ACT 112: Negative or not required by law. The above report was generated using voice recognition software. It may contain grammatical, syntax or spelling errors. Electronically signed by: Eugenio Elizondo M.D. 07/25/2019 10:47 PM Dictated: 07/25/192246 Transcribed: 07/25/192246 [place], [place] [phone] CT Scan Report Patient: MICHELL CALZADA Date: 07/25/19 MR#: [id number]: [address] [place] [address] Acct ID:[id number]: Date: [address] [place] [address] Zip: [place] [address] Age: 89Location: ED Sex: M Room/Bed: Att Phy:Diagnosis: WEAKNESS, UNABLE TO AMBULATE, UPPER RESP. INFECTIO Lesly Phy: Adrian Soliman, DOService Date: 07/25/19 Fam Phy:Interpreting Phy: Eugenio Elizondo MD Admit Phy: Ordering Phy: Juan Andrade MD cc: ~ CT head/brain wo con CT DOSE: 614.27 mGy.cm HISTORY: Mental status change ams TECHNIQUE: Multiaxial CT images of the head were performed without the use of intravenous contrast. A dose lowering technique was utilized adhering to the principles of ALARA. Comparison: None. Findings: Moderate mucosal thickening of the ethmoid sinuses. The calvarium and skull base are intact. The ventricles and sulci are within normal limits. There is no mass, hematoma, midline shift, or acute infarct. Age-related atrophy and chronic small vessel change Impression: 1. No acute intracranial abnormality. 2. Age-related atrophy and chronic small vessel change. 3. Mild to moderate mucosal thickening of the ethmoid sinuses. ACT 112: Negative or not required by law. The above report was generated using voice recognition software. It may contain grammatical, syntax or spelling errors. Electronically signed by: Eugenio Elizondo M.D. 07/25/2019 10:54 PM Dictated: 07/25/192251 Transcribed: 07/25/192251 Code Status & VTE Plan Code Status Full code VTE Prophylaxis Plan VTE Prophylaxis will be ordered: Yes PG Care Time/CCT Total # of Minutes Spent Total Time Spent with Patient: Total time spent is greater than 50% in coordination of care (as documented) at patient's floor/unit and/or counseling patient: Coding Level of Care Code 92603 Initial Inpt Care Lvl 3 Diagnoses Confusion R41.0 Weakness generalized R53.1 Hypomagnesemia E83.42 Cerebrovascular disease I67.9 Coronary artery disease I25.10 Hyperlipidemia E78.5 Diabetes mellitus, type II E11.9 Parkinsonism G20 Atrial fibrillation I48.91
[2019-07-26] MEDS ORDERED: MAGNESIUM HYDROXIDE SUSP 30 ML UDC PO PRN (01:47)
[2019-07-26] MEDS ORDERED: ACETAMINOPHEN 325 MG TAB PO PRN (01:47)
[2019-07-26] MEDS ORDERED: NSS + 20MEQ KCL 20 MEQ/1,000 ML BAG IV SCH (01:47)
[2019-07-26] MEDS ORDERED: ALUMINUM/MAGNESIUM SUSP 30 ML UDC PO PRN (01:47)
[2019-07-26] MEDS ORDERED: ONDANSETRON INJ 2 MG/ML 2 ML VIAL IV PRN (01:47)
[2019-07-26] MEDS: MAGNESIUM SULFATE / D5W 1 GM/100 ML BAG IV SCH ×5 (02:16→05:14)
[2019-07-26] MEDS: CHOLECALCIFEROL 1,000 UNITS 25 MCG TAB PO SCH ×2 (02:17→07:48)
[2019-07-26] MEDS: DORZOLAMIDE HCL 2% OPH SOLN 10 ML BTL OP SCH ×2 (02:18→07:47)
[2019-07-26 02:33] LABS: Magnesium 1.5 mg/dl (1.8-2.4); Troponin I 0.046 ng/ml (0-0.045)
[2019-07-26] MEDS ORDERED: LIDOCAINE 5% 1 PATCH TD PRN (02:37)
[2019-07-26 05:51] LABS: Basophils # (auto) 0.02 K/uL (0-0.2); Basophils % (auto) 0.3 %; Eosinophils # (auto) 0.11 K/uL (0-0.5); Eosinophils % (auto) 1.7 %; Hematocrit (blood only) 34.6 % (42-52); Hemoglobin 11.4 g/dL (14.0-18.0); Immature Granulocytes # (auto) 0.02 K/uL (0.00-0.02); Immature Granulocytes % (auto) 0.3 %; Lymphocytes # (auto) 1.34 K/uL (1.2-3.4); Lymphocytes % (auto) 21.2 %; Mean Corpuscular Hemoglobin 32.3 pg (25-34); Mean Corpuscular Hgb Conc 32.9 g/dL (32-36); Mean Platelet Volume 9.7 fL (7.4-10.4); Monocytes % (auto) 12.6 %; Neutrophils # (auto) 4.04 K/uL (1.4-6.5); Neutrophils % (auto) 63.9 %; Platelet Count 171 K/uL (130-400); RDW Coefficient of Variation 13.1 % (11.5-14.5); RDW Standard Deviation 46.7 fL (36.4-46.3); Red Blood Count 3.53 M/uL (4.7-6.1); White Blood Count 6.33 K/uL (4.8-10.8)
[2019-07-26 06:21] LABS: BUN Creatinine Ratio 14.1 (10-20); Calcium 8.4 mg/dl (8.5-10.1); Creatinine Clr Calc Pharmacy 45.3 ml/min; Est GFR (African American) 58.8; Est GFR (Non-African American) 50.7; Magnesium 2.7 mg/dl (1.8-2.4); Potassium 3.6 mmol/L (3.5-5.1)
[2019-07-26 06:24] LABS: Albumin Globulin Ratio 0.8 (0.9-2); Bilirubin,Total 0.4 mg/dl (0.2-1); Globulin 3.6 gm/dl (2.5-4.0); Total Protein 6.6 gm/dl (6.4-8.2)
[2019-07-26 06:57] LABS: Appearance Urine Clear (Clear); Bilirubin Urine Negative (Negative); Blood Urine Negative (Negative); Color Urine Yellow; Glucose Urine UA Negative (Negative); Ketones Urine Negative (Negative); Leukocyte Esterase Urine Negative (Negative); Nitrite Urine Negative (Negative); Protein Urine Negative (Negative); Specific Gravity Urine <= 1.005 (1.000-1.030); Urobilinogen Urine Negative (Negative); pH Urine 6.5 (4.5-7.5)
[2019-07-26] MEDS: CARBIDOPA/LEVODOPA 25/100MG TAB PO SCH ×2 (07:47→13:32)
[2019-07-26] MEDS ORDERED: MULTIVITAMIN TAB PO SCH (09:00)
[2019-07-26] MEDS ORDERED: HEPARIN SOD 5,000 UNIT/0.5 ML VIAL SQ SCH (09:00)
--- NOTE | 2019-07-26 13:32 | Discharge Summary ---
Date of Service July 26, 2019 Admission HPI Per Admitting Provider The patient is a 89-year-old male with a past medical history including parkinsonism, NSVT, atrial fibrillation, hypertension, second-degree AV block, complex sleep apnea syndrome, gait disorder, vertigo, BPH with LUTS, CKD, hyperlipidemia, diabetes mellitus type 2, CAD, cerebrovascular disease, AAA, pacemaker, second-degree heart block Mobitz 2, and syncope. The patient had been seen at his outpatient PCPs office on 07/24 for these symptoms, and was given a Lidoderm patch for the low back pain, and it was advised to take symptomatic treatment for the rhinorrhea which she has been experiencing. His reports that because he was more confused than usual and more delusional than usual, she brought him into the ED for assessment. The patient's contribution to his HPI and review of systems is somewhat limited due to underlying dementia and illness. Admission Exam Per Admitting Provider The patient is awake, does respond to questions slowly, when he can. He is normocephalic and atraumatic, lying in bed, appears fatigued, and in no acute distress. HEENT--PERRL, EOMI, mucous membranes and oropharynx mildly dry. Neck--supple. No JVD. No bruits. Thyroid normal, trachea midline, no adenopathy. Heart--normal S1 and S2. No murmurs, rubs or gallops. Lungs--clear bilaterally, no respiratory distress, no accessory muscle use. Abdomen--normal bowel sounds and soft. Nontender. Nondistended. Extremities--no cyanosis or clubbing. No edema. Dermatologic--normal skin turgor, normal color, no abnormal lymph nodes, no rash. Neurologic--cranial nerves II through XII grossly intact. Rheumatologic--normal range of motion. Psychiatric--normal affect. Principal Diagnosis multifactorial weakness and delirium Discharge Exam General: In NAD HEENT: moist oral mucosa Neuro: A&O x 4 CV: RRR, no m/r/g, cap refill 2 secs Pulm: CTAB, equal breath sounds bilaterally, no increased work of breathing Abdomen: +BS, no TTP in all quadrants, non-distended LE: No LE edema, no calf tenderness Discharge Data Allergies Allergy/AdvReac Type Severity Reaction Status Date / Time travoprost Allergy Unknown redness Verified 07/25/19 22:54 No Known Drug Allergies Allergy Verified 07/25/19 22:54 fructose AdvReac Intermediate diarrhea Verified 07/25/19 22:54 timolol AdvReac Mild IRRITATION Verified 07/25/19 22:54 Egg Derived AdvReac Unknown diarrhea Verified 07/25/19 22:54 Consultations 07/26/19 01:47 Consult Case Management - Discharge Planning Routine Ordered Studies 07/25/19 22:30 CT head/brain wo con Stat Hospital Course (1) Weakness generalized: 89-year-old male with past medical history of parkinsonism, NSVT, atrial fibrillation, hypertension, second-degree AV block, complex sleep apnea syndrome, gait disorder, vertigo, BPH with LUTS, CKD, hyperlipidemia, diabetes mellitus type 2, CAD, cerebrovascular disease, AAA, pacemaker, second-degree heart block Mobitz 2, and syncope presented with concern for increased confusion/weakness. Delirium/Weakness: Multifactorial - URI vs. hypomagnesemia vs. parkinsonism (progression may be contributing to his symptoms of confusion, generalized fatigue) vs. central sleep apnea - concerned about increased confusion with generalized weakness -Saw PCP on 07/24 for URI symptoms and chronic low back pain, for which he received a Lidoderm patch -CT of head negative. -Received ceftriaxone and azithromycin IV in the ED only -Found to have low magnesium at 1.4 -Symptoms improved this AM and pt was discharged Hypomagnesemia: Likely secondary to poor diet -Mag 1.4 received magnesium sulfate 4 g IV -Improved to 2.7 -Normal Ca, Vit D level -Discharged on magnesium oxide 400mg daily Hx Cerebrovascular disease/CAD/HLD/HTN/atrial fibrillation Continue aspirin/dipyridamole, simvastatin 20 mg at bedtime Diabetes mellitus, type II: not on any medications Parkinsonism: -Continue carbidopa levodopa (2) Confusion: (3) Hypomagnesemia: (4) Atrial fibrillation: (5) Complex sleep apnea syndrome: (6) Gait disorder: (7) Chronic kidney disease: (8) Hyperlipidemia: (9) Diabetes mellitus, type II: (10) Coronary artery disease: (11) Cerebrovascular disease: (12) AAA (abdominal aortic aneurysm): (13) Pacemaker: (14) Second degree AV block, Mobitz type II: (15) Parkinsonism: Total Time Total Time Spent Total Time Spent (In Minutes): Greater than 30 Discharge Plan Discharge Items Patient Disposition: Home - Self-Care Reason For Visit: HYPOMAGNESEMIA,PROGRESSIVE WEAKNESS,URI Discharge Diagnosis: Delirium - multifactorial Hypomagnesemia Activity: Resume your previous activity Non-emergency contact: Primary Care Provider Call non-emergency contact if: you have any medication questions and your symptoms worsen Follow-up/Referrals: Adrian Soliman, [Primary Care Provider] - Diet: Carb Consistent or DM2 Addtl Attending Provider Instructions: Mr. Linda crawford were admitted for concern of confusion and weakness which was likely multifactorial in the setting of having an upper respiratory infection, a low magnesium level and parkinsonism. You received magnesium supplementation. You had a through work up which was reassuring. Your low magnesium level is likely from low dietary intake of magnesium. You are being discharged on a magnesium supplement. Otherwise you can continue taking your medications as you were prior to your admission. -Take Magnesium Oxide 400mg 1 pill daily -Continue your home medications as prescribed -Follow up with your doctor in 2-3 days Pending Studies at Discharge: Yes (Blood cultures ) Stand-Alone Forms: My [facility], Smoking Cessation Medications and DC Order Prescriptions: New magnesium oxide 400 mg (241.3 mg magnesium) tablet 400 mg PO DAILY Qty: 30 RF: 0 Continued aspirin-dipyridamole 25-200 mg capsule, ER multiphase 12 hr 1 cap PO HS Qty: 90 RF: 0 multivitamin tablet 1 tab PO QAM RF: 0 carbidopa-levodopa 25-100 mg tablet 0.5 tab PO TID 30 Days Qty: 45 RF: 5 simvastatin 20 mg tablet 20 mg PO HS Qty: 90 RF: 0 dorzolamide 2 % drops 1 drops OP BID RF: 0 cholecalciferol (vitamin D3) 1,000 unit capsule 1,000 units PO BID RF: 0 lidocaine [Lidocaine Pain Relief] 4 % Adhesive Patch,Medicated 1 patch TOPICAL DAILY PRN (Reason: Pain) RF: 0 Discharge Orders: Discharge Order (Routine); Ordered 07/26/19 Ordered By: Pj Tanner/Other Patient Handouts: Hypomagnesemia Dc Admission Data Admit Date/Time: 07/26/19 00:53 Attending Provider: Jh Barrientos Admit Provider: Garrison Villa Primary Care Provider: Adrian Soliman Other Interventions: Discharge Summary Assessment (RN) Last Done: 07/26/19 13:12 CO Date/Time DO NOT enter until pt leaves facility: 07/26/19 14:48 Supervising Physician Co-Signing Physician Notes I personally examined the patient and verified all galo points of history and exam, discussed case, and agree with decision making with Dr Chambers. Feeling better, feeling back to baseline. present who corroborates he is back to baseline. Extensive discussion on probable etiology of weaknessparkinsonism probably made worse by rather significant low magnesium, as well as possibly a little bit of effects of upper respiratory infection. At any rate he is improved dramatically simply with replacement of his magnesium and supportive care. He is walking around at his baseline, he and his both feel safe taking him home as he is now. Vitals noted, in general he is awake and alert pleasant no distress. HEENT normocephalic atraumatic mucous membranes moist. Breathing unlabored no accessory muscle use good effort. Skin shows no rashes no pallor or icterus. Gait is very slow and shuffling stooped over with a walkerbut the notes this is his baseline gait, and he is also using a hospital walker not his own. Generalized weakness/confusion that was likely a delirium/multifactorial encephalopathyprobably was a combination of his low magnesium, upper respiratory infection, and baseline parkinsonism. He appears to be back to his baseline now, stable for homesupplement magnesium empirically for now outpatient follow-up including labs. Resident Activity Tracking Resident Involvement: Resident Care Provided Care Provided: Adult Hospital Medicine
--- NOTE | 2019-07-26 15:26 | Billing Data ---
Date of Service July 26, 2019 Coding Level of Care Code D/C Day Management >30 mins
--- NOTE | 2019-07-26 16:46 | Electrocardiogram Report ---
Test Reason : Blood Pressure : / mmHG Vent. Rate : 094 BPM Atrial Rate : 094 BPM P-R Int : 204 ms QRS Dur : 162 ms QT Int : 392 ms P-R-T Axes : 000 -71 077 degrees QTc Int : 490 ms Poor data quality, interpretation may be adversely affected Atrial-sensed ventricular-paced rhythm Abnormal ECG When compared with ECG of 28-APR-2019 16:24, Vent. rate has increased BY 30 BPM Confirmed by Edgar Morgan ([id number]) on 07/26/2019 4:46:34 PM Referred By: REFERRED SELF Confirmed By:Cullen Morgan
[2019-07-26] MEDS ORDERED: DIPYRIDAMOLE/ASPIRIN CAP PO SCH (21:00)
[2019-07-26] MEDS ORDERED: SIMVASTATIN 20 MG TAB PO SCH (21:00)
== END 2019-07-26 14:48 | disposition home or self-care (01) | DRG 947 ==
LOC: ED 21:54 → 2S 07-26 00:53 → SUATTDRO 07-26 00:53 → 2S 07-26 01:25